=== PATIENT | female | born 1950 | race Caucasian/White ===

== ENCOUNTER 2016-04-12 05:49 | Observation (INO) ==
--- NOTE | 2016-04-12 05:57 | Emergency Department Note ---
Disposition Clinical Impression: A-fib Qualifiers: Atrial fibrillation type: chronic Qualified Code(s): I48.2 - Chronic atrial fibrillation Disposition: Still a Patient Condition: Critical Referrals: Unassigned,Provider [Non-Partnered Physician] - Forms: ED Satisfaction Letter Arrhythmia/Palpitations HPI - General Chief Complaint: ED Arrhythmia/Palpitations Stated Complaint: High heart rate Time Seen by Provider: 04/12/16 05:53 Source: patient, EMS Limitations: no limitations Nursing Notes Reviewed: Yes Vital Signs Reviewed: Yes - History of Present Illness HPI Narrative: Ms. Chen, a 65yo female, presents from home by EMS with CC: weakness, lightheadedness. Hx paroxysmal A. Fib. Patient awoke to use the restroom, felt weak and light headed. States these are typical symptoms for her A. Fib, though not as severe this time. Per EMS, patient was in A. Fib while in route. Patient is now asymptomatic. Anticoagulated on Eliquis and aspirin. Rate controlled with Cardizem 120mg Qday. PMH: A. Fib, HTN Admits: weakness, lightheadedness. Denies: fever, chills, chest pain, palpitations, back pain, headache, changes in vision, fall or trauma associated with her symptoms today. - Related Data Home Medications Medication Instructions Recorded Confirmed Flaxseed Oil PO DAILY 06/11/15 Losartan/HCTZ 100 mg PO DAILY 06/11/15 06/11/15 Marco Antonio Multivit For Women Caplet 06/11/15 Pantoprazole 40 mg PO DAILY 06/11/15 06/11/15 Previous Rx's Medication Instructions Recorded Apixaban [Eliquis] 5 mg PO BID 30 Days 06/12/15 Aspirin 81 mg PO DAILY 30 Days 06/12/15 Diltiazem CD (24hr) [Cardizem CD] 120 mg PO DAILY 30 Days 06/12/15 Losartan/HCTZ [Hyzaar 50-12.5 1 each PO DAILY #30 tablet 06/12/15 Tablet] Potassium Chlorate 30 meq PO DAILY 30 Days 06/12/15 Allergies Allergy/AdvReac Type Severity Reaction Status Date / Time No Known Allergies Allergy Verified 06/11/15 01:22 All systems ED: reviewed and negative except as stated. 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 HEENT: No facial asymmetry. Head is normocephalic and atraumatic. Trachea midline. Cardiovascular: Heart irregular rapid rate rhythm without clicks, rubs, gallops , or murmurs. No JVD. PMI nondisplaced. No pedal edema. Respiratory: Symmetric chest rise with good respiratory effort. Bilateral breath sounds are clear without wheezing, crackles, or rhonchi. Abdomen: Bowel sounds present normoactive x-4 quadrants. Abdomen is soft, nondistended, and nontender. No organomegaly noted. Psych: Patient's affect is appropriate for situation. - General Limitations: no limitations General appearance: alert Course Course Narrative: Patient arrives in A. [facility] RVR. She is well-appearing, alert, oriented, denies chest pain, and in no acute distress. She did take her morning Cardizem prior to transport. We will begin Cardizem drip, EKG, blood work. 06:40 Cardizem drip rate: 5mg/hr. Patient's HR has slowed from 190's to 130-150s, still A. Fib. She is asymptomatic at this time. Vital Signs Temperature 98.0 F 04/12/16 05:50 Pulse Rate 182 04/12/16 05:50 Respiratory Rate 20 04/12/16 05:50 Blood Pressure 144/117 04/12/16 05:50 O2 Sat by Pulse Oximetry 98 04/12/16 05:50 Temperature 98.0 F 04/12/16 05:50 Pulse Rate 141 04/12/16 06:25 Respiratory Rate 18 04/12/16 06:17 Blood Pressure 122/75 04/12/16 06:25 O2 Sat by Pulse Oximetry 95 04/12/16 06:25 Oxygen Delivery Oxygen Delivery Nasal Cannula Arrhythmia/Palpitations - Lab Data Result diagrams: 04/12/16 06:00 04/12/16 06:00 Lab Results 04/12/16 04/12/16 04/12/16 Range/Units 06:00 06:00 06:00 WBC 5.6 (4.3-11.1) K/mcL RBC 3.91 (3.82-4.97) M/mcL Hgb 8.6 L (11.5-15.4) g/dL Hct 30.4 L (35.3-44.9) % MCV 77.7 L (83.0-100.0) fL MCH 22.0 L (28.0-33.3) pg MCHC 28.3 L (31.6-35.5) g/dL RDW 16.8 H (11.5-14.5) % Plt Count 313 (140-400) K/mcL MPV 9.5 (9.4-12.4) fL Immature Gran % 0.2 (0-4) % Seg Neutrophils % 59.7 % Lymphocytes % 26.7 % Monocytes % 8.0 % Eosinophils % 5.0 % Basophils % 0.4 % Neutrophils # 3.3 (1.6-8.9) K/mcL Lymphocytes # 1.5 (0.6-4.6) K/mcL Monocytes # 0.5 (0.0-1.3) K/mcL Eosinophils # 0.3 (0.0-0.6) K/mcL Basophils # 0.0 (0.0-0.2) K/mcL Platelet Estimate Normal (Normal) Large Platelets Present A (Not Present) Polychromasia 1+ A (Not Present) Hypochromasia Present A (Not Present) Macrocytosis Present A (Not Present) PT 13.2 H (9.4-12.1) Seconds INR 1.2 APTT 46.8 H (26.0-36.0) Seconds Sodium 143 (136-145) mEq/L Potassium 3.5 (3.5-4.5) mEq/L Chloride 111 H (98-109) mEq/L Carbon Dioxide 22 (19-29) mEq/L BUN 17 (7-20) mg/dL Creatinine 0.82 (0.57-1.11) mg/dL Est GFR ( Amer) > 60 (> 60) Est GFR (Non-Af Amer) > 60 (> 60) BUN/Creatinine Ratio 21 (6-26) Glucose 111 H (70-99) mg/dL Calculated Osmolality 298 (280-300) Calcium 9.3 (8.6-10.8) mg/dL Troponin I (0-0.03) ng/mL TSH 1.995 (0.350-4.840) mcIU/mL 04/12/16 Range/Units 06:00 WBC (4.3-11.1) K/mcL RBC (3.82-4.97) M/mcL Hgb (11.5-15.4) g/dL Hct (35.3-44.9) % MCV (83.0-100.0) fL MCH (28.0-33.3) pg MCHC (31.6-35.5) g/dL RDW (11.5-14.5) % Plt Count (140-400) K/mcL MPV (9.4-12.4) fL Immature Gran % (0-4) % Seg Neutrophils % % Lymphocytes % % Monocytes % % Eosinophils % % Basophils % % Neutrophils # (1.6-8.9) K/mcL Lymphocytes # (0.6-4.6) K/mcL Monocytes # (0.0-1.3) K/mcL Eosinophils # (0.0-0.6) K/mcL Basophils # (0.0-0.2) K/mcL Platelet Estimate (Normal) Large Platelets (Not Present) Polychromasia (Not Present) Hypochromasia (Not Present) Macrocytosis (Not Present) PT (9.4-12.1) Seconds INR APTT (26.0-36.0) Seconds Sodium (136-145) mEq/L Potassium (3.5-4.5) mEq/L Chloride (98-109) mEq/L Carbon Dioxide (19-29) mEq/L BUN (7-20) mg/dL Creatinine (0.57-1.11) mg/dL Est GFR ( Amer) (> 60) Est GFR (Non-Af Amer) (> 60) BUN/Creatinine Ratio (6-26) Glucose (70-99) mg/dL Calculated Osmolality (280-300) Calcium (8.6-10.8) mg/dL Troponin I 0.01 (0-0.03) ng/mL TSH (0.350-4.840) mcIU/mL Critical Care Time Critical Care Time: Yes Total Critical Care Time: 40 Attestation: Critical care performed: Time is exclusive of separately billable procedures. Time includes: direct patient care, patient reassessment, coordination of patient care, interpretation of data (laboratory data, radiology data, and respiratory data), review of patient's medical records, medical consultation and documentation of patient care. Procedures included in critical care time: Procedures excluded from critical care time: Attestation Statement - Attestation Attestation: I, Yariel Mardid MD, personally performed a history and physical exam of the patient and discussed their management with the resident. I reviewed the resident's note and agree with the documented findings, medical decision making , and plan of care. 65-year-old female presents to the emergency department with a complaint of rapid heart beat. Patient states she awoke this morning and got up to go to the bathroom. After she got up and went to the bathroom she started feeling a little lightheaded and dizzy with some mild palpitations and mild shortness of breath. No chest pain. No syncope. She does have a prior history of atrial fibrillation and is currently taking Cardizem. She is also on aspirin and Eliquis. On arrival here in the emergency department the patient is in atrial fibrillation with RVR with a heart rate in the range of 200. Pressure is stable and she is awake alert and oriented with no chest pain. No diaphoresis. On examination patient is a well-developed well-nourished well-appearing female in no acute distress. She is alert and oriented 3. There is no cyanosis or diaphoresis. Chest is nontender to palpation. Breath sounds are clear and equal bilaterally. Heart is very tachycardic and irregularly irregular. Labs reviewed. Hemoglobin of 8.6. Troponin normal. Chest x-ray negative. EKG shows atrial fibrillation with RVR. Patient received Cardizem 20 mg IV push and was placed on a Cardizem infusion. Heart rate improved down into the range of 130 to 150 but continues in atrial fibrillation RVR. The hospitalist, Dr. Garnica, was consulted for admission however at shift change he has not returned his page. Patient is being signed out to the [facility] dayshift team, Dr. France and Dr. Reyes.
[2016-04-12 06:06] LABS: Basophils % 0.4 %; Eosinophils # 0.3 K/mcL (0.0-0.6); Hematocrit 30.4 % (35.3-44.9); Hemoglobin 8.6 g/dL (11.5-15.4); Immature Granulocytes % 0.2 % (0-4); Lymphocytes # 1.5 K/mcL (0.6-4.6); Lymphocytes % 26.7 %; Mean Corpuscular HGB Conc 28.3 g/dL (31.6-35.5); Mean Corpuscular Volume 77.7 fL (83.0-100.0); Mean Platelet Volume 9.5 fL (9.4-12.4); Monocytes # 0.5 K/mcL (0.0-1.3); Platelet Count 313 K/mcL (140-400); Red Blood Count 3.91 M/mcL (3.82-4.97); Red Cell Distribution Width 16.8 % (11.5-14.5); Segmented Neutrophils % 59.7 %
[2016-04-12 06:08] LABS: Neutrophils # 3.3 K/mcL (1.6-8.9)
[2016-04-12 06:13] LABS: INR 1.2; Prothrombin Time 13.2 Seconds (9.4-12.1)
[2016-04-12 06:15] LABS: Activated Partial Thrombo Time 46.8 Seconds (26.0-36.0)
[2016-04-12 06:19] LABS: BUN/Creatinine Ratio 21 (6-26); Blood Urea Nitrogen 17 mg/dL (7-20); Calcium 9.3 mg/dL (8.6-10.8); Carbon Dioxide 22 mEq/L (19-29); Chloride 111 mEq/L (98-109); Glucose 111 mg/dL (70-99); Osmolality,Calculated 298 (280-300); Potassium 3.5 mEq/L (3.5-4.5); Sodium 143 mEq/L (136-145); eGFR For African Americans > 60 (> 60); eGFR For Non-African Americans > 60 (> 60)
[2016-04-12 06:26] LABS: Hypochromasia Present (Not Present)
[2016-04-12 06:27] LABS: Large Platelets Present (Not Present); Macrocytosis Present (Not Present); Platelet Estimate Normal (Normal); Polychromasia 1+ (Not Present)
[2016-04-12 06:42] LABS: Thyroid Stimulating Hormone 1.995 mcIU/mL (0.350-4.840)
--- NOTE | 2016-04-12 07:09 | Emergency Department Note ---
Disposition Clinical Impression: A-fib Qualifiers: Atrial fibrillation type: chronic Qualified Code(s): I48.2 - Chronic atrial fibrillation Disposition: Admitted As Inpatient Condition: Good Time of Disposition: 07:30 Arrhythmia/Palpitations HPI - General Chief Complaint: ED Arrhythmia/Palpitations Stated Complaint: High heart rate Time Seen by Provider: 04/12/16 05:53 Source: patient, EMS Limitations: no limitations Nursing Notes Reviewed: Yes Vital Signs Reviewed: Yes - Related Data Home Medications Medication Instructions Recorded Confirmed Losartan/HCTZ [Hyzaar 50-12.5 1 tab PO DAILY 04/12/16 04/12/16 Tablet] Mv W-Ca/Iron/FA/Lutein/Hrb#179 1 tab PO DAILY 04/12/16 04/12/16 [Marco Antonio Multivit For Women Caplet] Pantoprazole Sodium [Protonix] 40 mg PO BID 04/12/16 04/12/16 Potassium Chloride [Klor-Con 10] 30 meq PO BID 04/12/16 04/12/16 Previous Rx's Medication Instructions Recorded Aspirin 81 mg PO DAILY 30 Days 06/12/15 Diltiazem CD (24hr) [Cardizem CD] 180 mg PO DAILY #30 cap.er.24h 04/13/16 Ferrous Sulfate 325 mg PO TIDWM #90 tablet 04/13/16 Omeprazole 20 mg PO DAILY #30 tablet. 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 George pending call back from the hospitalist for disposition, patient is anticoagulated history of atrial fibrillation, currently on Cardizem drip rate from the 200s to 120s, her blood pressure stable. Patient is stable awaiting admission hospitalist - Reevaluation(s) Reevaluation #1: Patient reevaluated heart lung sound clear, heart rate 60. Sinus rhythm, on Cardizem drip, patient currently stable, blood pressure 106/70, weight for bed, please see night physician Dr. Madrid and Dr. George's note for further documentation on this patient encounter Time: 08:27 Vital Signs Temperature 98.0 F 04/12/16 05:50 Pulse Rate 182 04/12/16 05:50 Respiratory Rate 20 04/12/16 05:50 Blood Pressure 144/117 04/12/16 05:50 O2 Sat by Pulse Oximetry 98 04/12/16 05:50 Temperature 98.0 F 04/13/16 10:58 Pulse Rate 67 04/13/16 10:58 Respiratory Rate 18 04/13/16 10:58 Blood Pressure 157/80 04/13/16 10:58 O2 Sat by Pulse Oximetry 98 04/13/16 10:58 Oxygen Delivery Oxygen Delivery Nasal Cannula Arrhythmia/Palpitations - [facility] Narrative Medical decision making narrative: 65-year-old female with A. fib with RVR, Cardizem bolus and drip started, heart rate improved from 185 down to 120s, blood pressure stable admitted to medicine service in stable condition. - Differential Diagnosis Differential Diagnosis: Likely: sinus tachycardia, artial arrhythmia, ventricular premature beats, supraventricular tachycardia - Lab Data Lab results reviewed: Yes I reviewed the patient's lab results. Result diagrams: 04/13/16 04:33 04/13/16 04:33 Lab Results 04/12/16 04/12/16 04/12/16 Range/Units 06:00 06:00 06:00 WBC 5.6 (4.3-11.1) K/mcL RBC 3.91 (3.82-4.97) M/mcL Hgb 8.6 L (11.5-15.4) g/dL Hct 30.4 L (35.3-44.9) % MCV 77.7 L (83.0-100.0) fL MCH 22.0 L (28.0-33.3) pg MCHC 28.3 L (31.6-35.5) g/dL RDW 16.8 H (11.5-14.5) % Plt Count 313 (140-400) K/mcL MPV 9.5 (9.4-12.4) fL Immature Gran % 0.2 (0-4) % Seg Neutrophils % 59.7 % Lymphocytes % 26.7 % Monocytes % 8.0 % Eosinophils % 5.0 % Basophils % 0.4 % Neutrophils # 3.3 (1.6-8.9) K/mcL Lymphocytes # 1.5 (0.6-4.6) K/mcL Monocytes # 0.5 (0.0-1.3) K/mcL Eosinophils # 0.3 (0.0-0.6) K/mcL Basophils # 0.0 (0.0-0.2) K/mcL Platelet Estimate Normal (Normal) Large Platelets Present A (Not Present) Polychromasia 1+ A (Not Present) Hypochromasia Present A (Not Present) Macrocytosis Present A (Not Present) PT 13.2 H (9.4-12.1) Seconds INR 1.2 APTT 46.8 H (26.0-36.0) Seconds Sodium 143 (136-145) mEq/L Potassium 3.5 (3.5-4.5) mEq/L Chloride 111 H (98-109) mEq/L Carbon Dioxide 22 (19-29) mEq/L BUN 17 (7-20) mg/dL Creatinine 0.82 (0.57-1.11) mg/dL Est GFR ( Amer) > 60 (> 60) Est GFR (Non-Af Amer) > 60 (> 60) BUN/Creatinine Ratio 21 (6-26) Glucose 111 H (70-99) mg/dL Calculated Osmolality 298 (280-300) Calcium 9.3 (8.6-10.8) mg/dL Troponin I (0-0.03) ng/mL TSH 1.995 (0.350-4.840) mcIU/mL 04/12/16 Range/Units 06:00 WBC (4.3-11.1) K/mcL RBC (3.82-4.97) M/mcL Hgb (11.5-15.4) g/dL Hct (35.3-44.9) % MCV (83.0-100.0) fL MCH (28.0-33.3) pg MCHC (31.6-35.5) g/dL RDW (11.5-14.5) % Plt Count (140-400) K/mcL MPV (9.4-12.4) fL Immature Gran % (0-4) % Seg Neutrophils % % Lymphocytes % % Monocytes % % Eosinophils % % Basophils % % Neutrophils # (1.6-8.9) K/mcL Lymphocytes # (0.6-4.6) K/mcL Monocytes # (0.0-1.3) K/mcL Eosinophils # (0.0-0.6) K/mcL Basophils # (0.0-0.2) K/mcL Platelet Estimate (Normal) Large Platelets (Not Present) Polychromasia (Not Present) Hypochromasia (Not Present) Macrocytosis (Not Present) PT (9.4-12.1) Seconds INR APTT (26.0-36.0) Seconds Sodium (136-145) mEq/L Potassium (3.5-4.5) mEq/L Chloride (98-109) mEq/L Carbon Dioxide (19-29) mEq/L BUN (7-20) mg/dL Creatinine (0.57-1.11) mg/dL Est GFR ( Amer) (> 60) Est GFR (Non-Af Amer) (> 60) BUN/Creatinine Ratio (6-26) Glucose (70-99) mg/dL Calculated Osmolality (280-300) Calcium (8.6-10.8) mg/dL Troponin I 0.01 (0-0.03) ng/mL TSH (0.350-4.840) mcIU/mL - Radiology Data Radiology results reviewed: Yes I reviewed the patient's radiology results. - EKG Data EKG attestation: Yes I reviewed and interpreted this EKG. 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 65-year-old female received in sign out pending admission to the hospitalist. Chin diagnosed with A. fib with RVR. Resident admitted patient to the hospitalist without difficulty. Patient had no further complaints or concerns on reevaluation.
--- NOTE | 2016-04-12 09:10 | Internal Med History&Physical ---
Date of Encounter: 04/12/16 Time of Encounter: 08:30 Assessment and Plan (1) Atrial fibrillation with rapid ventricular response Current visit: Yes Status: Acute History of atrial fibrillation on oral Cardizem and Eliquis at home. She woke up this morning and while going to the bathroom she suddenly felt dizzy, lightheaded, short of breath and noticed that her heart rate was beating fast. no chest pain. She took her Cardizem 120 mg pill at 5.30 am with attempt to slow down her heart rate but no success. Patient reports severe runny nose for the past few weeks due to dust at home, they are cleaning her rugs and doing some renovation. She has taken over the counter nasal swabs and pills, does not recall the names of the medications but just took yesterday a new [facility] pill for runny nose. Patient was admitted on May 2015 with afib with rvr and elevated troponin due to rvr, at that time she was started n oral cardizem and has done well. In ED, initial EKG showed atrial fibrillation HR [address] depression V2 -V6 (prior EKG in May 2015 afib rvr hr 161, and ST depression V4-V5). She received Iv Cardizem 20 mg and then was started on cardizem drip at 5 with rapid conversion to SR HR 60. First troponin is negative, She is asymptomatic at this time. 05/2015: Echocardiogram revealed LVEF 60%. plan: Repeat EKG shows SR, HR 66. pt already took this morning, will stop cardizem drip and monitor her rhythm. may resume cardizem drip if she develops afib with rvr. serial troponin. instructed patient to bring over the counter medications and check if might have triggered her to develop afib with rvr. (2) Anemia Current visit: Yes Status: Acute Hgb 8.6 (hg 12.7 in May 2015 when patient started Eliquis). Fecal hemoccult repeat hgb in afternoon. check ferritin, iron profile, folate, b12 levels Qualifiers: Anemia type: unspecified type Qualified Code(s): D64.9 - Anemia, unspecified (3) HTN (hypertension) Current visit: Yes Status: Acute BP is adequate. resume home cardizem. Qualifiers: Hypertension type: essential hypertension Qualified Code(s): I10 - Essential (primary) hypertension (4) Obesity (BMI 30-39.9) Current visit: No Status: Acute bmi 36. outpt weight loss program Internal Medicine - H&P: HPI Chief complaint: palpitations this morning. Admitted From: Home Plans for Post Hospital Care: Home History of present illness: Ms. Chen is a 65 year old female with past medical history of atrial fibrillation on Eliquis and hypertension. She woke up this morning and while going to the bathroom she suddenly felt dizzy, lightheaded, short of breath and noticed that her heart rate was beating fast. no chest pain. no syncope. no bleeding. no diaphoresis. no focal deficit. no fever. no abdominal pain. no urinary complaints. no LE edema. no headache. She took her Cardizem pill 120 mg at 5.30 am with attempt to slow down her heart rate but no success. She called EMS and was brought to our ED. Patient reports severe runny nose for the past few weeks due to dust at home, they are cleaning her rugs and doing some renovation. She has taken over the counter nasal swabs and pills, does not recall the names of the medications but just took yesterday a new [facility] pill for runny nose. Patient was admitted on May 2015 with afib with rvr and elevated troponin due to rvr, at that time she was started n oral cardizem and has done well. In ED, initial EKG showed atrial fibrillation HR [address] depression V2 -V6 (prior EKG in May 2015 afib rvr hr 161, and ST depression V4-V5). She received Iv Cardizem 20 mg and then was started on cardizem drip at 5 with rapid conversion to SR HR 60. She is asymptomatic at this time. Hgb 8.6 (hg 12.7 in May 2015 when patient started Eliquis). Past Med Surg Social Fam HX - Past Medical History Medical history: atrial fibrillation, GERD, hypertension Psychiatric history: no psych history - Social History Smoking Status: Never smoker Alcohol use: none Drug use: none - Family History Mother Living Status: Hx Family Cardiac Disorders: Yes (NC, HTN) Hx Family Respiratory Disorders: No Hx Family Cancer: Yes (COLON, UTERUS) Hx Family GI Disorders: No Hx Family Endocrine Disorder: No Hx Family Neuromuscular Disorders: No Hx Family Neurologic Disorders: No Hx Family HEENT Disorders: No Hx Family Autoimmune Disorders: No Father Living Status: Hx Family Cardiac Disorders: No Hx Family Respiratory Disorders: No Hx Family Cancer: No Hx Family GI Disorders: No Hx Family Endocrine Disorder: No Hx Family Neuromuscular Disorders: No Hx Family Neurologic Disorders: No Hx Family HEENT Disorders: No Hx Family Autoimmune Disorders: No Internal Medicine - H&P: Meds Flaxseed Oil PO DAILY 06/11/15 [History] Losartan/HCTZ 100 mg PO DAILY 06/11/15 [History] Marco Antonio Multivit For Women Caplet 06/11/15 [History] Pantoprazole 40 mg PO DAILY 06/11/15 [History] Apixaban [Eliquis] 5 mg PO BID 30 Days 06/12/15 [Rx] Aspirin 81 mg PO DAILY 30 Days 06/12/15 [Rx] Diltiazem CD (24hr) [Cardizem CD] 120 mg PO DAILY 30 Days 06/12/15 [Rx] Losartan/HCTZ [Hyzaar 50-12.5 Tablet] 1 each PO DAILY #30 tablet 06/12/15 [Rx] Potassium Chlorate 30 meq PO DAILY 30 Days 06/12/15 [Rx] Allergies No Known Allergies Allergy (Verified 06/11/15 01:22) All Systems PM: A 10-system review of systems was performed and is negative for pertinent findings except as documented above in the HPI. - Constitutional Vitals: Temp Pulse Resp BP Pulse Ox 98.0 F 60 16 136/75 99 04/12/16 05:50 04/12/16 08:38 04/12/16 08:46 04/12/16 08:46 04/12/16 08:38 General appearance: Present: cooperative, A&O X 3, pleasant, no acute distress, answers questions appropriately - Eye Eye exam: Present: PERRL, sclera anicteric - Neck Neck exam general surgery: Present: supple, trachea midline. Absent: lymphadenopathy - Respiratory Respiratory exam: Present: CTAB - Cardiovascular Cardiovascular exam: Present: RRR - GI/Abdominal GI/Abdominal exam: Present: normal bowel sounds, soft. Absent: distended, tenderness - Extremities Exam Extremities exam: Present: normal inspection, radial pulses palpable and symetrical. Absent: pedal edema - Back Exam Back exam: Absent: CVA tenderness (L), CVA tenderness (R) - Neurological Exam Neurological exam: Present: alert, oriented X3, no focal deficits, strengths equal and symetr throughout. Absent: facial droop, speech deficit - Skin Skin exam: Present: normal color. Absent: cyanosis, rash Internal Med - H&P Results - Labs CBC & Chem 7: 04/12/16 06:00 04/12/16 06:00
[2016-04-12] MEDS ORDERED: Naloxone 0.4 MG/ML INJ IVP PRN (09:17)
[2016-04-12] MEDS ORDERED: Acetaminophen 325 MG TABLET PO PRN (09:17)
[2016-04-12] MEDS ORDERED: Ondansetron 4 MG/2 ML VIAL IVP PRN (09:17)
[2016-04-12] MEDS ORDERED: Diltiazem CD (24hr) 120 MG CAPSULE PO SCH (09:45)
[2016-04-12 13:54] LABS: Hematocrit 27.1 % (35.3-44.9); Hemoglobin 7.8 g/dL (11.5-15.4)
[2016-04-12 14:04] LABS: % Iron Saturation 3 % (15-50); Iron 12 mcg/dL (50-170); Transferrin 301 mg/dL (180-382)
[2016-04-12 14:25] LABS: Ferritin 7 ng/ml (5-204)
[2016-04-12 14:40] LABS: Folate 16.3 ng/mL (7.0-31.4)
[2016-04-12] MEDS: APIXABAN 5 MG TABLET PO SCH (20:29)
[2016-04-13 05:14] LABS: Basophils % 0.2 %; Immature Granulocytes % 0.3 % (0-4)
[2016-04-13 05:15] LABS: Eosinophils # 0.2 K/mcL (0.0-0.6); Eosinophils % 4.1 %; Hematocrit 28.1 % (35.3-44.9); Hemoglobin 7.9 g/dL (11.5-15.4); Lymphocytes # 1.4 K/mcL (0.6-4.6); Lymphocytes % 24.2 %; Mean Corpuscular HGB Conc 28.1 g/dL (31.6-35.5); Mean Corpuscular Hemoglobin 21.9 pg (28.0-33.3); Mean Corpuscular Volume 77.8 fL (83.0-100.0); Mean Platelet Volume 9.9 fL (9.4-12.4); Monocytes # 0.5 K/mcL (0.0-1.3); Monocytes % 8.6 %; Neutrophils # 3.7 K/mcL (1.6-8.9); Platelet Count 280 K/mcL (140-400); Red Blood Count 3.61 M/mcL (3.82-4.97); Red Cell Distribution Width 16.7 % (11.5-14.5); Segmented Neutrophils % 62.6 %
[2016-04-13 05:35] LABS: BUN/Creatinine Ratio 19 (6-26); Blood Urea Nitrogen 15 mg/dL (7-20); Calcium 9.5 mg/dL (8.6-10.8); Carbon Dioxide 24 mEq/L (19-29); Chloride 109 mEq/L (98-109); Glucose 97 mg/dL (70-99); Magnesium 1.8 mg/dL (1.6-2.6); Osmolality,Calculated 293 (280-300); Phosphorous 3.4 mg/dL (2.3-4.7); Potassium 3.5 mEq/L (3.5-4.5); Sodium 141 mEq/L (136-145); eGFR For African Americans > 60 (> 60); eGFR For Non-African Americans > 60 (> 60)
[2016-04-13 05:50] LABS: Anisocytosis 1+ (Not Present); Hypochromasia Present (Not Present); Platelet Estimate Normal (Normal)
[2016-04-13 05:51] LABS: Ovalocytes 1+ (Not Present)
[2016-04-13] MEDS: APIXABAN 5 MG TABLET PO SCH (08:43)
[2016-04-13] MEDS ORDERED: Aspirin 81 MG TAB.CHEW PO SCH (09:00)
[2016-04-13] MEDS ORDERED: hydroCHLOROthiazide 25 MG TABLET PO SCH (09:00)
[2016-04-13] MEDS ORDERED: Diltiazem CD (24hr) 120 MG CAPSULE PO SCH (09:00)
[2016-04-13 10:59] VITALS: BP 157/80
[2016-04-13] MEDS ORDERED: Potassium Chloride Elixir 20 MEQ/15 ML UDC GTUBE SCH (11:00)
--- NOTE | 2016-04-13 14:50 | Discharge Summary ---
Date of Encounter: 04/13/16 Time of Encounter: 08:20 - Discharge Diagnosis (1) Atrial fibrillation with rapid ventricular response Priority: Primary Status: Acute (2) Anemia Priority: Secondary Status: Acute Qualifiers: Anemia type: iron deficiency Iron deficiency anemia type: other iron deficiency Qualified Code(s): D50.8 - Other iron deficiency anemias (3) HTN (hypertension) Priority: Secondary Status: Chronic Qualifiers: Hypertension type: essential hypertension Qualified Code(s): I10 - Essential (primary) hypertension (4) Obesity (BMI 30-39.9) Priority: Secondary Status: Chronic - Discharge Medications Prescriptions: Diltiazem CD (24hr) [Cardizem CD] 180 mg PO DAILY #30 cap.er.24h Ferrous Sulfate 325 mg PO TIDWM #90 tablet Omeprazole 20 mg PO DAILY #30 tablet. Home Medications: Aspirin 81 mg PO DAILY 30 Days 06/12/15 [Rx] Losartan/HCTZ [Hyzaar 50-12.5 Tablet] 1 tab PO DAILY 04/12/16 [History] Mv W-Ca/Iron/FA/Lutein/Hrb#179 [[facility] Multivit For Women Caplet] 1 tab PO DAILY 04/12/16 [History] Pantoprazole Sodium [Protonix] 40 mg PO BID 04/12/16 [History] Potassium Chloride [Klor-Con 10] 30 meq PO BID 04/12/16 [History] Diltiazem CD (24hr) [Cardizem CD] 180 mg PO DAILY #30 cap.er.24h 04/13/16 [Rx] Ferrous Sulfate 325 mg PO TIDWM #90 tablet 04/13/16 [Rx] Omeprazole 20 mg PO DAILY #30 tablet. 04/13/16 [Rx] Allergies/Adverse Reactions: Allergies No Known Allergies Allergy (Verified 06/11/15 01:22) Procedures/tests Complete & Pending: Procedures Performed prior 72 hours Category Date Time Status ECG 12 lead ECG [ECG] AM 0600 Y 04/13/16 06:00 Ordered ECG 12 lead ECG [ECG] Routine Y 04/12/16 09:17 Completed ECG 12 lead ECG [ECG] Routine Y 04/12/16 10:04 Completed ECG 12 lead ECG [ECG] Routine Y 04/12/16 15:22 Completed EV echocardiogram Stat Y 04/13/16 09:49 Ordered Date of admission: 04/12/16 07:45 Primary care physician: Mercy Lennon CNP Discharging clinician: Pancho Wilcox Anticipated date of discharge: 04/13/16 - Patient Status Disposition: Home, Self-Care Condition: Good Functional capacity at discharge: independent ambulation Overall status at discharge: patient is progressing back to baseline - Discharge Instructions Follow Up With: Mercy Lennon CNP [Primary Care Provider] - (web request sent on 04/12/16 ) Jonathan Rocha MD [Partnered Physician] - (In 2 weeks for anemia) Additional Instructions: Follow-up with cardiology in 1-2 weeks. - Diet and Activity Activity: increase activity as tolerated Diet: low fat, low cholesterol, low salt diet Hospital course: Ms. Chen is a 65 year old female patient with history of atrial fibrillation- paroxysmal, hypertension was hospitalized here with rapid A. fib after she presented to the ER complaining of dizziness lightheadedness and palpitations. She had taken her oral diltiazem before coming into the ER. In the ER she was given IV Cardizem and then started on Cardizem drip with rapid conversion to sinus rhythm. Since then her heart rate has been in sinus rhythm and patient feels has been feeling much better. Her troponins were slightly elevated. Patient denies any chest pain. They have trended downwards. Most likely elevation is due to demand ischemia/A. fib. A 2-D echocardiogram has been ordered and is currently pending. Patient wishes to go home today and so she can follow-up on the results of the echocardiogram with her primary care provider. Patient was also anemic on presentation. Reviewing her labs, her hemoglobin at baseline is at 12 and this was in May of last year. Her current hemoglobin is around 8. It has remained stable during his stay here. Given that the patient has been on Eliquis, there is a risk of GI bleed. Patient denies any melena or hematemesis. She does have very low iron levels. Given these findings, I recommend stopping Eliquis till she has been evaluated by GI. I would also recommend rechecking her blood work in one week to see if her anemia has stabilized or improved. I will also place her on iron supplements. Taking her off Eliquis does increase her risk of stroke and I explained this to the patient. She understands her current situation and is agreeable to holding Eliquis. I will also refer her to cardiology for follow-up. - Time Spent with Patient Total time spent providing and/or coordinating discharge services: Greater than 30 minutes (40 min) - Constitutional Vitals: Temp Pulse Resp BP Pulse Ox 98.0 F 67 18 157/80 98 04/13/16 10:58 04/13/16 10:58 04/13/16 10:58 04/13/16 10:58 04/13/16 10:58 General appearance: Present: cooperative, A&O X 3, pleasant, no acute distress, answers questions appropriately - Respiratory Respiratory exam: Present: CTAB. Absent: accessory muscle use, rales, rhonchi, wheezes - Cardiovascular Cardiovascular exam: Present: RRR, +S1, +S2. Absent: diastolic murmur, gallop, rubs, systolic murmur - GI/Abdominal GI/Abdominal exam: Present: normal bowel sounds, soft, no peritoneal signs. Absent: distended, tenderness - Attending Attestation This document has been at least partially created by [employer] recognition technology by Dr. Wilcox. Errors in grammar, wording or other phrases may exist. If errors are found after the documentation is signed, they will be addressed individually in the addendum section of this document when appropriate.
[2016-04-14] MEDS ORDERED: Potassium Chloride Elixir 20 MEQ/15 ML UDC PO SCH (09:00)
--- NOTE | 2016-04-14 10:58 | ECHO - Doppler Report ---
Echocardiogram Name: Yolette Weiss April Date of Study: 04/13/2016 Date: 1950 Ht: 63.0 in Medical Record#: [id number] Age: 65 Wt: 205.0 lb Gender: Female BSA: 1.95 Order #: [id number] Location: [facility] Room #: 2A24 Reading Physician: Becca Crews DO [address] Deputy Clerk: Shahla Grace RDCS Ordering Physician: Pancho Wilcox MD Primary Physician: eMrcy Lennon CNP Indications: Elevated Troponin Impressions: LVEF 60%. Normal left ventricular size and systolic function. Normal right ventricular size and function. Mild mitral regurgitation. No pulmonary hypertension. Left Ventricular Wall Motion: Rest Echo Findings All wall segments showed normal motion. Findings: Study Quality * Technically adequate exam. ECG Findings * Normal sinus rhythm. Left Ventricle * LVEF 60%. * Normal LV chamber size, wall thickness and function. * Indeterminate diastolic function. Mitral Valve * Normal mitral valve structure. * No mitral stenosis. * Mild mitral regurgitation. Aortic Valve * Trileaflet aortic valve. * Normal aortic valve structure. * No aortic stenosis. * Trace aortic regurgitation. Tricuspid Valve * Tricuspid valve not well visualized. * Trace tricuspid regurgitation. * Estimated RA pressure is 3 mmHg. * Estimated RVSP is 33 mmHg. * No pulmonary hypertension. Pulmonic Valve * Pulmonic valve is not well visualized. * No pulmonic stenosis. * No pulmonic regurgitation. Pulmonary Artery * Pulmonary artery not well visualized. Right Ventricle * Normal right ventricular structure and function. Right Atrium * Normal right atrial size. Left Atrium * Severely dilated left atrium. Interatrial Septum * No evidence of PFO by color Doppler. IVC * The IVC is not dilated. Pericardium * There is no pericardial effusion present. History Hypertension Family History of CAD 06/11/2015 a Previous Echo was performed. Measurements: BP: 157/ 80 2D Normal Values IVSd: .89 cm 0.6 - 1.0 cm LVIDd: 5.20 cm 3.7 - 5.6 cm LVPWd: .89 cm 0.6 - 1.1 cm LVIDs: 2.94 cm 1.5 - 3.6 cm AO: 2.80 cm < 4.0 cm LA: 4.50 cm 2.0 - 4.0cm %FS: 48.20 cm >25 % LA volume: 83 Mitral Valve Peak E:1.16 m/sec Peak A:.81 m/sec E/A Ratio:1.4 Peak E' Lat Romie:13.6 cm/s Peak E' Med Romie:9.36 cm/s E/E' Lat Ratio:8.5 E/E' Med Ratio:12.4 Tricuspid Valve TV Regurg Peak Grad: 30.00mmHg TV Regurg Peak Romie: 2.76m/sec Updated by Becca Crews on 04/14/2016 10:52:12 AM electronically signed on 04/14/2016 10:53:26 AM with status of [employer] Knight: 1=Normal, 2=Hypokinesis, 3=Akinesis, 4=Dyskinesis, 5=Aneurysmal, 6=Hyperkinetic, X=Not Visualized (Blank)=Missing
--- NOTE | 2016-04-14 17:37 | Electrocardiograph Report ---
[place] [address] Test Date: 2016-04-12 Pat Name: Yolette Chen Department: 112 Room: 2A24 Gender: F Curber: : 1950 Requested By: Pancho Wilcox Order Number: [id number] Reading MD: Becca Crews Measurements Intervals [place] Rate: 68 P: -85 MO: 100 QRS: 29 QRSD: 90 T: 42 QT: 402 QTc: 419 Interpretive Statements JUNCTIONAL RHYTHM NONSPECIFIC T-WAVE ABNORMALITY ABNORMAL RHYTHM ECG Electronically Signed On 04-14-2016 17:35:44 EST by Becca Crews
--- NOTE | 2016-04-14 17:44 | Electrocardiograph Report ---
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
--- NOTE | 2016-04-14 17:45 | Electrocardiograph Report ---
[place] [address] Test Date: 2016-04-12 Pat Name: Yolette Chen Department: 112 Room: 2A24 Gender: F [employer] Est[employer] Specialist: : 1950 Requested By: Rowena Del Rosario Order Number: [id number] Reading MD: Altagracia Conroy Measurements Intervals [place] Rate: 67 P: -82 [place]: 105 QRS: 31 QRSD: 90 T: 28 QT: 401 QTc: 416 Interpretive Statements Ectopic atrial rhythm NONSPECIFIC T-WAVE ABNORMALITY ABNORMAL RHYTHM ECG Electronically Signed On 04-14-2016 17:43:54 EST by Altagracia Conroy
--- NOTE | 2016-04-14 17:52 | Electrocardiograph Report ---
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
== END 2016-04-13 17:32 | disposition home or self-care (01) ==
LOC: EMEROO 05:49 → 2ANU 05:49
PROVIDERS: ADMIT Internal Medicine; ATTEND Internal Medicine

== ENCOUNTER 2016-06-09 18:41 | Observation (INO) ==
[2016-06-09] MEDS ORDERED: Ondansetron 4 MG/2 ML VIAL IV ONE (18:56)
[2016-06-09] MEDS ORDERED: 0.9 % Sodium Chloride 500 ML IVC ONE (18:56)
[2016-06-09 19:22] LABS: Hematocrit 41.3 % (35.3-44.9); Hemoglobin 13.3 g/dL (11.5-15.4); Mean Corpuscular HGB Conc 32.2 g/dL (31.6-35.5); Mean Corpuscular Hemoglobin 27.6 pg (28.0-33.3); Mean Corpuscular Volume 85.7 fL (83.0-100.0); Mean Platelet Volume 9.6 fL (9.4-12.4); Platelet Count 243 K/mcL (140-400); Red Blood Count 4.82 M/mcL (3.82-4.97); Red Cell Distribution Width 24.5 % (11.5-14.5)
[2016-06-09 19:28] LABS: Prothrombin Time 10.5 Seconds (9.4-12.1)
[2016-06-09 19:36] LABS: Alanine Aminotransferase 16 Units/L (0-55); Albumin 3.5 g/dL (3.5-5.0); Albumin/Globulin Ratio 0.9 (1.1-2.2); Alkaline Phosphatase 74 Units/L (38-126); Aspartate Amino Transferase 24 Units/L (5-34); BUN/Creatinine Ratio 31 (6-26); Bilirubin,Total 0.4 mg/dL (0.2-1.2); Blood Urea Nitrogen 25 mg/dL (7-20); Calcium 9.8 mg/dL (8.6-10.8); Carbon Dioxide 22 mEq/L (19-29); Chloride 110 mEq/L (98-109); Globulin 3.9 g/dL (2.4-3.5); Glucose 105 mg/dL (70-99); Osmolality,Calculated 299 (280-300); Potassium 3.3 mEq/L (3.5-4.5); Sodium 142 mEq/L (136-145); Total Protein 7.4 g/dL (6.0-8.3); eGFR For African Americans > 60 (> 60); eGFR For Non-African Americans > 60 (> 60)
[2016-06-09 19:41] LABS: Lymphocytes # 0.7 K/mcL (0.6-4.6); Monocytes # 0.7 K/mcL (0.0-1.3); Neutrophils # 9.8 K/mcL (1.6-8.9)
[2016-06-09 19:42] LABS: Anisocytosis 1+ (Not Present)
--- NOTE | 2016-06-09 20:07 | Emergency Department Note ---
Disposition Clinical Impression: Fibrillation, atrial Qualifiers: Atrial fibrillation type: persistent Qualified Code(s): I48.1 - Persistent atrial fibrillation Disposition: Admitted As Inpatient Condition: Fair Referrals: Mercy Lennon CNP [Primary Care Provider] - Forms: ED Satisfaction Letter Nausea/Vomiting/Diarrhea HPI - General Chief complaint: ED Nausea/Vomiting/Diarrhea Stated complaint: ate bad sausage Time Seen by Provider: 06/09/16 18:49 Source: EMS Limitations: no limitations Nursing Notes Reviewed: Yes Vital Signs Reviewed: Yes - History of Present Illness HPI Narrative: History presents with complaint of palpitations that started after vomiting today. Patient ate some bad sausage she thought and started vomiting. Patient noticed she developed palpitations and put herself into atrial fibrillation. Patient denies any chest pain denies shortness of breath. Patient denies any other pain currently. Patient denies any dizziness denies numbness and tingling. - Related Data Home Medications Medication Instructions Recorded Confirmed Losartan/HCTZ [Hyzaar 50-12.5 1 tab PO DAILY 04/12/16 06/09/16 Tablet] Mv W-Ca/Iron/FA/Lutein/Hrb#179 1 tab PO DAILY 04/12/16 06/09/16 [Marco [facility] Multivit For Women Caplet] Pantoprazole Sodium [Protonix] 40 mg PO BID 04/12/16 06/09/16 Potassium Chloride [Klor-Con 10] 30 meq PO BID 04/12/16 06/09/16 Aspirin Enteric Coated [Aspirin EC] 81 mg PO DAILY 06/09/16 06/09/16 Previous Rx's Medication Instructions Recorded Diltiazem CD (24hr) [Cardizem CD] 180 mg PO DAILY #30 cap.er.24h 04/13/16 Allergies Allergy/AdvReac Type Severity Reaction Status Date / Time No Known Allergies Allergy Verified 04/20/16 07:26 All systems ED: reviewed and negative except as stated. Past Medical History - Past Medical History Source: patient, nursing notes reviewed Medical history: Reports: atrial fibrillation, GERD, hypertension Surgical history: Reports: cholecystectomy Psychiatric history: Reports: no psych history SPINE SPECIALIST history: Reports: bilateral tubal ligation - Social History Smoking Status: Never smoker Smokeless Tobacco Status: No Alcohol use: Reports: none Drug use: Reports: none Physical Exam - General Limitations: no limitations General appearance: alert - Head Head exam: atraumatic, normocephalic, normal inspection - Eye Eye exam: Present: normal appearance, PERRL, EOMI - ENT ENT exam: normal exam, normal oropharynx, mucous membranes moist - Neck Neck exam: Present: normal inspection, full ROM, trachea midline - Chest Chest inspection: Present: normal inspection, symmetric chest wall rise - Respiratory Respiratory exam: Present: normal lung sounds bilaterally - Cardiovascular Cardiovascular exam: Present: tachycardia, irregular rhythm - Abdominal Exam Abdominal exam: Present: soft, Non-Tender. Absent: tenderness, distention, guarding, rebound, rigidity - Extremities Exam Extremities exam: Present: normal inspection, full ROM. Absent: tenderness, pedal edema - Back Exam Back exam: Present: normal inspection, full ROM. Absent: tenderness - Neurological Exam Neurological exam: Present: alert, oriented X3 - Psychiatric Psychiatric exam: Present: normal affect, normal mood - Skin Skin exam: Present: warm, dry, intact, normal color Course Vital Signs Temperature 97.3 F L 06/09/16 18:42 Pulse Rate 162 06/09/16 18:42 Respiratory Rate 20 06/09/16 18:42 Blood Pressure 116/92 06/09/16 18:42 O2 Sat by Pulse Oximetry 95 06/09/16 18:42 Temperature 97.3 F L 06/09/16 18:42 Pulse Rate 162 06/09/16 18:42 Respiratory Rate 20 06/09/16 18:42 Blood Pressure 116/92 06/09/16 18:42 O2 Sat by Pulse Oximetry 95 06/09/16 18:42 Oxygen Delivery Oxygen Delivery Room Air Nausea/Vomiting/Diarrhea - Differential Diagnosis Likely: gastroenteritis, drug-induced nausea and vomitting, dehydration, bowel obstruction - Lab Data Lab results reviewed: Yes I reviewed the patient's lab results. Result diagrams: 06/09/16 19:15 06/09/16 19:15 Lab Results 06/09/16 06/09/16 06/09/16 Range/Units 19:15 19:15 19:15 WBC 11.1 (4.3-11.1) K/mcL RBC 4.82 (3.82-4.97) M/mcL Hgb 13.3 (11.5-15.4) g/dL Hct 41.3 (35.3-44.9) % MCV 85.7 (83.0-100.0) fL MCH 27.6 L (28.0-33.3) pg MCHC 32.2 (31.6-35.5) g/dL RDW 24.5 H (11.5-14.5) % Plt Count 243 (140-400) K/mcL MPV 9.6 (9.4-12.4) fL Seg Neutrophils % 76.0 % Band Neutrophils % 12.0 H (0-4) % Lymphocytes % 6.0 % Monocytes % 6.0 % Neutrophils # 9.8 H (1.6-8.9) K/mcL Lymphocytes # 0.7 (0.6-4.6) K/mcL Monocytes # 0.7 (0.0-1.3) K/mcL Anisocytosis 1+ A (Not Present) PT 10.5 (9.4-12.1) Seconds INR 1.0 APTT 42.0 H (26.0-36.0) Seconds Sodium 142 (136-145) mEq/L Potassium 3.3 L (3.5-4.5) mEq/L Chloride 110 H (98-109) mEq/L Carbon Dioxide 22 (19-29) mEq/L BUN 25 H (7-20) mg/dL Creatinine 0.81 (0.57-1.11) mg/dL Est GFR ( Amer) > 60 (> 60) Est GFR (Non-Af Amer) > 60 (> 60) BUN/Creatinine Ratio 31 H (6-26) Glucose 105 H (70-99) mg/dL Calculated Osmolality 299 (280-300) Lactic Acid (0.5-2.2) mmol/L Calcium 9.8 (8.6-10.8) mg/dL Total Bilirubin 0.4 (0.2-1.2) mg/dL AST 24 (5-34) Units/L ALT 16 (0-55) Units/L Alkaline Phosphatase 74 (38-126) Units/L Troponin I (0-0.03) ng/mL Serum Total Protein 7.4 (6.0-8.3) g/dL Albumin 3.5 (3.5-5.0) g/dL Globulin 3.9 H (2.4-3.5) g/dL Albumin/Globulin Ratio 0.9 L (1.1-2.2) 06/09/16 06/09/16 Range/Units 19:15 19:15 WBC (4.3-11.1) K/mcL RBC (3.82-4.97) M/mcL Hgb (11.5-15.4) g/dL Hct (35.3-44.9) % MCV (83.0-100.0) fL MCH (28.0-33.3) pg MCHC (31.6-35.5) g/dL RDW (11.5-14.5) % Plt Count (140-400) K/mcL MPV (9.4-12.4) fL Seg Neutrophils % % Band Neutrophils % (0-4) % Lymphocytes % % Monocytes % % Neutrophils # (1.6-8.9) K/mcL Lymphocytes # (0.6-4.6) K/mcL Monocytes # (0.0-1.3) K/mcL Anisocytosis (Not Present) PT (9.4-12.1) Seconds INR APTT (26.0-36.0) Seconds Sodium (136-145) mEq/L Potassium (3.5-4.5) mEq/L Chloride (98-109) mEq/L Carbon Dioxide (19-29) mEq/L BUN (7-20) mg/dL Creatinine (0.57-1.11) mg/dL Est GFR ( Amer) (> 60) Est GFR (Non-Af Amer) (> 60) BUN/Creatinine Ratio (6-26) Glucose (70-99) mg/dL Calculated Osmolality (280-300) Lactic Acid 0.8 (0.5-2.2) mmol/L Calcium (8.6-10.8) mg/dL Total Bilirubin (0.2-1.2) mg/dL AST (5-34) Units/L ALT (0-55) Units/L Alkaline Phosphatase (38-126) Units/L Troponin I 0.00 (0-0.03) ng/mL Serum Total Protein (6.0-8.3) g/dL Albumin (3.5-5.0) g/dL Globulin (2.4-3.5) g/dL Albumin/Globulin Ratio (1.1-2.2) - Radiology Data Radiology results reviewed: Yes I reviewed the patient's radiology results. Chest X-Ray 06/09/16 18:49 IMPRESSION: Cardiomegaly with mild pulmonary vascular congestion. D/ / Fani Cardenas MD / Fani Cardenas MD Interpreting Provider: Fani Cardenas MD - EKG Data EKG attestation: Yes I reviewed and interpreted this EKG. Rate: tachycardia Rhythm: A.Fib Critical Care Time Total Critical Care Time: 45 Attestation: Critical care performed: Time is exclusive of separately billable procedures. Time includes: direct patient care, patient reassessment, coordination of patient care, interpretation of data (laboratory data, radiology data, and respiratory data), review of patient's medical records, medical consultation and documentation of patient care. Procedures included in critical care time: Procedures excluded from critical care time:
[2016-06-09] MEDS ORDERED: 0.9 % Sodium Chloride 500 ML ONE (20:31)
[2016-06-09] MEDS ORDERED: Naloxone 0.4 MG/ML INJ IVP PRN (23:10)
[2016-06-09] MEDS ORDERED: Ondansetron 4 MG/2 ML VIAL IVP PRN (23:10)
--- NOTE | 2016-06-09 23:19 | Internal Med History&Physical ---
Date of Encounter: 06/09/16 Time of Encounter: 23:00 Assessment and Plan (1) Atrial fibrillation with rapid ventricular response Current visit: Yes Status: Acute Secondary to GI illness (likely food poisoning) leading to acute electrolyte derangements. Patient not anticoagulated secondary to severe anemia requiring blood transfusions, being managed by PCP - Patient in NSR on arrival to floor, diltiazem gtt discontinued - Monitor on telemetry overnight, restart dilt gtt if returns to a fib - Continue home PO diltiazem - Replace K, recheck in AM - Check mag STAT, replace if low - Trend troponins (2) Hypokalemia Current visit: No Status: Chronic K 3.3, in setting of vomiting. - Check Magnesium level and replace, goal >2 - Replace K, recheck in AM (3) CAD (coronary artery disease) Current visit: No Status: Acute Patient denies chest pain - Trend troponin Qualifiers: Coronary Disease-Associated Artery/Lesion type: [place] artery [place] vs. transplanted heart: [place] heart Associated angina: without angina Qualified Code(s): I25.10 - Atherosclerotic heart disease of [place] coronary artery without angina pectoris (4) Nausea & vomiting Current visit: Yes Status: Acute Likely food poisoning secondary to eating spoiled sausage. Patient denies nausea on arrival to medicine floor. - PRN antiemetics Qualifiers: Vomiting type: unspecified Vomiting Intractability: non-intractable Qualified Code(s): R11.2 - Nausea with vomiting, unspecified Internal Medicine - H&P: HPI Chief complaint: nausea, vomiting, a fib with RVR Admitted From: Emergency Dept Plans for Post Hospital Care: Home History of present illness: Ms. Chen is a 65 year old female with history of paroxysmal atrial fibrillation who presented to the ER this afternoon after she developed severe nausea, vomiting, and atrial fibrillation with RVR. She was admitted two months ago with an episode of a fib with RVR and had been feeling well since discharge. This afternoon she ate a sausage out of her refrigerator which was several days old, and shortly after eating it she began violently vomiting. She also had an episode of loose stool on arrival to her room on the med/surg floor. After the vomiting began she could tell that she was in atrial fibrillation with RVR, as she was having severe palpitations but no chest pain. She did take her dose of PO diltiazem early this morning, but attempted to take a second dose while vomiting. Unfortunately she was unable to keep the diltiazem down and vomited it up shortly after she took it. In the ER she was found to be in atrial fibrillation with heart rate of 180s-200s. She was started on a diltiazem gtt and converted to NSR shortly after arriving to the medicine floor. She currently has no complaints other than being tired, and she notes she is always tired after an episode of atrial fibrillation. Of note she is no longer on eliquis, as she had anemia of unclear etiology (colonoscopy and EGD negative) requiring recent blood transfusions and her PCP discontinued the eliquis. Past Med Surg Social Fam HX - Past Medical History Medical history: atrial fibrillation, GERD, hypertension Psychiatric history: no psych history - Past Surgical History Surgical History: cholecystectomy, colectomy - Social History Smoking Status: Never smoker Smokeless Tobacco Status: No Alcohol use: none Drug use: none Additional social history: Lives at home, one year ago - Family History Brother Living Status: Hx Family Cardiac Disorders: No Hx Family Respiratory Disorders: No Hx Family Cancer: Yes (colon) Hx Family GI Disorders: No Hx Family Genitourinary Disorders: No Hx Family Endocrine Disorder: No Hx Family Musculoskeletal Disorders: No Hx Family Neuromuscular Disorders: No Hx Family Neurologic Disorders: No Hx Family HEENT Disorders: No Hx Family Autoimmune Disorders: No Hx Family Reproductive Disorders: No Hx Family Psychosocial Disorders: No Hx Family Medical Disorders: No Sister Living Status: Still Living Hx Family Cardiac Disorders: No Hx Family Respiratory Disorders: No Hx Family Cancer: Yes (colon, uterine) Hx Family GI Disorders: No Hx Family Genitourinary Disorders: No Hx Family Endocrine Disorder: No Hx Family Musculoskeletal Disorders: No Hx Family Neuromuscular Disorders: No Hx Family Neurologic Disorders: No Hx Family HEENT Disorders: No Hx Family Autoimmune Disorders: No Hx Family Reproductive Disorders: No Hx Family Psychosocial Disorders: No Hx Family Medical Disorders: No Daughter Living Status: Still Living Hx Family Cardiac Disorders: No Hx Family Respiratory Disorders: No Hx Family Cancer: No Hx Family GI Disorders: No Hx Family Genitourinary Disorders: No Hx Family Endocrine Disorder: No Hx Family Musculoskeletal Disorders: No Hx Family Neuromuscular Disorders: No Hx Family Neurologic Disorders: No Hx Family HEENT Disorders: No Hx Family Autoimmune Disorders: No Hx Family Reproductive Disorders: Yes (polycystic ovary) Hx Family Psychosocial Disorders: No Hx Family Medical Disorders: No Mother Living Status: Hx Family Cardiac Disorders: Yes ([place], HTN) Hx Family Respiratory Disorders: No Hx Family Cancer: Yes (COLON, UTERUS) Hx Family GI Disorders: No Hx Family Genitourinary Disorders: No Hx Family Endocrine Disorder: No Hx Family Musculoskeletal Disorders: No Hx Family Neuromuscular Disorders: No Hx Family Neurologic Disorders: No Hx Family HEENT Disorders: No Hx Family Autoimmune Disorders: No Hx Family Reproductive Disorders: No Hx Family Psychosocial Disorders: No Hx Family Medical Disorders: No Father Living Status: Hx Family Cardiac Disorders: No Hx Family Respiratory Disorders: No Hx Family Cancer: No Hx Family GI Disorders: No Hx Family Endocrine Disorder: No Hx Family Neuromuscular Disorders: No Hx Family Neurologic Disorders: No Hx Family HEENT Disorders: No Hx Family Autoimmune Disorders: No Internal Medicine - H&P: Meds Losartan/HCTZ [Hyzaar 50-12.5 Tablet] 1 tab PO DAILY 04/12/16 [History] Mv W-Ca/Iron/FA/Lutein/Hrb#179 [[place] Mult[employer]it [employer] Women Caplet] 1 tab PO DAILY 04/12/16 [History] Pantoprazole Sodium [Protonix] 40 mg PO BID 04/12/16 [History] Potassium Chloride [Klor-Con 10] 30 meq PO BID 04/12/16 [History] Diltiazem CD (24hr) [Cardizem CD] 180 mg PO DAILY #30 cap.er.24h 04/13/16 [Rx] Aspirin Enteric Coated [Aspirin EC] 81 mg PO DAILY 06/09/16 [History] Allergies No Known Allergies Allergy (Verified 04/20/16 07:26) All Systems PM: A 10-system review of systems was performed and is negative for pertinent findings except as documented above in the HPI. - Constitutional Vitals: Temp Pulse Resp BP Pulse Ox 97.9 F 136 19 136/85 96 06/09/16 22:02 06/09/16 22:02 06/09/16 22:02 06/09/16 22:02 06/09/16 22:02 General appearance: Present: A&O X 3, pleasant, no acute distress - Head Head exam: Present: atraumatic - Eye Eye exam: Present: EOMI, sclera anicteric - ENT ENT exam: Present: mucous membranes moist - Neck Neck exam general surgery: Present: supple - Respiratory Respiratory exam: Present: CTAB - Cardiovascular Cardiovascular exam: Present: RRR. Absent: diastolic murmur, gallop, rubs, systolic murmur - GI/Abdominal GI/Abdominal exam: Present: normal bowel sounds, soft. Absent: distended, tenderness - Extremities Exam Extremities exam: Absent: pedal edema - Neurological Exam Neurological exam: Present: no focal deficits - Skin Skin exam: Absent: rash Internal Med - H&P Results - Labs CBC & Chem 7: 06/09/16 19:15 06/09/16 19:15
[2016-06-10 06:13] LABS: Basophils % 0.2 %; Eosinophils # 0.2 K/mcL (0.0-0.6); Hematocrit 36.8 % (35.3-44.9); Immature Granulocytes % 0.4 % (0-4); Lymphocytes # 1.2 K/mcL (0.6-4.6); Lymphocytes % 21.6 %; Mean Corpuscular HGB Conc 32.6 g/dL (31.6-35.5); Mean Corpuscular Hemoglobin 28.3 pg (28.0-33.3); Mean Corpuscular Volume 86.8 fL (83.0-100.0); Monocytes # 0.4 K/mcL (0.0-1.3); Neutrophils # 3.8 K/mcL (1.6-8.9); Platelet Count 216 K/mcL (140-400); Red Blood Count 4.24 M/mcL (3.82-4.97); Red Cell Distribution Width 24.8 % (11.5-14.5); Segmented Neutrophils % 67.8 %
[2016-06-10 06:26] LABS: BUN/Creatinine Ratio 24 (6-26); Blood Urea Nitrogen 18 mg/dL (7-20); Calcium 9.2 mg/dL (8.6-10.8); Carbon Dioxide 28 mEq/L (19-29); Chloride 109 mEq/L (98-109); Glucose 100 mg/dL (70-99); Magnesium 1.9 mg/dL (1.6-2.6); Osmolality,Calculated 296 (280-300); Potassium 3.5 mEq/L (3.5-4.5); Sodium 142 mEq/L (136-145); eGFR For African Americans > 60 (> 60); eGFR For Non-African Americans > 60 (> 60)
[2016-06-10 06:42] VITALS: BP 137/77
[2016-06-10 06:43] LABS: Anisocytosis 1+ (Not Present); Platelet Estimate Normal (Normal)
[2016-06-10] MEDS ORDERED: Diltiazem CD (24hr) 180 MG CAPSULE PO SCH (09:00)
[2016-06-10] MEDS ORDERED: Losartan/HCTZ 50-12.5 TABLET PO SCH (09:00)
[2016-06-10] MEDS ORDERED: Aspirin Enteric Coated 81 MG Tablet PO SCH (09:00)
[2016-06-10] MEDS ORDERED: Multivit/Ca/Min/Fe/FA 1 TAB TABLET PO SCH (09:00)
--- NOTE | 2016-06-10 09:27 | Electrocardiograph Report ---
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
--- NOTE | 2016-06-10 10:28 | Discharge Summary ---
Date of Encounter: 06/10/16 Time of Encounter: 10:25 - Discharge Diagnosis (1) Atrial fibrillation with rapid ventricular response Priority: Primary Status: Acute (2) Nausea & vomiting Priority: Secondary Status: Acute Qualifiers: Vomiting type: unspecified Vomiting Intractability: non-intractable Qualified Code(s): R11.2 - Nausea with vomiting, unspecified (3) DVT prophylaxis Priority: Secondary Status: Acute (4) Elevated troponin Priority: Secondary Status: Acute - Discharge Medications Home Medications: Losartan/HCTZ [Hyzaar 50-12.5 Tablet] 1 tab PO DAILY 04/12/16 [History] Mv W-Ca/Iron/FA/Lutein/Hrb#179 [[place] [place] Mult[employer]it For Women Caplet] 1 tab PO DAILY 04/12/16 [History] Pantoprazole Sodium [Protonix] 40 mg PO BID 04/12/16 [History] Potassium Chloride [Klor-Con 10] 30 meq PO BID 04/12/16 [History] Diltiazem CD (24hr) [Cardizem CD] 180 mg PO DAILY #30 cap.er.24h 04/13/16 [Rx] Aspirin Enteric Coated [Aspirin EC] 81 mg PO DAILY 06/09/16 [History] Allergies/Adverse Reactions: Allergies No Known Allergies Allergy (Verified 04/20/16 07:26) Date of admission: 06/09/16 20:46 Primary care physician: Mercy Lennon CNP Discharging clinician: Cosme Antunez Anticipated date of discharge: 06/10/16 - Patient Status Disposition: Home, Self-Care Condition: Fair Functional capacity at discharge: independent ambulation Overall status at discharge: patient is back to baseline - Discharge Instructions Follow Up With: Mercy Lennon CNP [Primary Care Provider] - 06/18/16 10:40 am - Diet and Activity Activity: increase activity as tolerated Diet: advance to your usual diet Interval History: Ms. Chen is a 65 year old female with history of paroxysmal atrial fibrillation who presented to the ER this afternoon after she developed severe nausea, vomiting, and atrial fibrillation with RVR. She was admitted two months ago with an episode of a fib with RVR and had been feeling well since discharge. This afternoon she ate a sausage out of her refrigerator which was several days old, and shortly after eating it she began violently vomiting. She also had an episode of loose stool on arrival to her room on the med/surg floor. After the vomiting began she could tell that she was in atrial fibrillation with RVR, as she was having severe palpitations but no chest pain. She did take her dose of PO diltiazem early this morning, but attempted to take a second dose while vomiting. Unfortunately she was unable to keep the diltiazem down and vomited it up shortly after she took it. In the ER she was found to be in atrial fibrillation with heart rate of 180s-200s. She was started on a diltiazem gtt and converted to NSR shortly after arriving to the medicine floor. She currently has no complaints other than being tired, and she notes she is always tired after an episode of atrial fibrillation. Of note she is no longer on eliquis, as she had anemia of unclear etiology (colonoscopy and EGD negative) requiring recent blood transfusions and her PCP discontinued the eliquis. Hospital course: Ms. Chen is a 65 year old female admitted due to afib with RVR, responded to cardizem drip and was transitioned to her usual po meds. Afib with rvr exacerbated by acute dehydration as a consequence of food poison. Mild trop elevation, adynamic,, no chest pain. Patient otherwise stable, will discharge her home today. She will follow up with her PCP. Plan explained to patient, she expressed understanding. - Time Spent with Patient Total time spent providing and/or coordinating discharge services: - Constitutional Vitals: Temp Pulse Resp BP Pulse Ox 97.8 F 60 16 137/77 98 06/10/16 06:35 06/10/16 06:35 06/10/16 06:35 06/10/16 06:35 06/10/16 10:19 General appearance: Present: A&O X 3, pleasant, no acute distress - Head Head exam: Present: atraumatic, normocephalic - Eye Eye exam: Present: PERRL, conjuntiva pink, sclera anicteric Pupils: Present: PERRL - Neck Neck exam general surgery: Present: supple, trachea midline. Absent: lymphadenopathy - Respiratory Respiratory exam: Present: CTAB. Absent: accessory muscle use, rales, rhonchi, wheezes - Cardiovascular Cardiovascular exam: Present: RRR, +S1, +S2. Absent: diastolic murmur, gallop, rubs, systolic murmur - GI/Abdominal GI/Abdominal exam: Present: normal bowel sounds, soft, no peritoneal signs. Absent: distended, tenderness - Extremities Exam Extremities exam: Present: warm, radial pulses palpable and symetrical. Absent : calf tenderness, cyanotic, pedal edema - Neurological Exam Neurological exam: Present: CN II-XII intact, oriented X3, no focal deficits. Absent: pronater drift, facial droop, speech deficit - Skin Skin exam: Present: dry, intact
== END 2016-06-10 13:50 | disposition home or self-care (01) ==
LOC: 2NENU 18:41 → EMEROO 18:41 → SUATTDRO 20:46 → 2NENU 21:25
PROVIDERS: ADMIT Internal Medicine; ATTEND Internal Medicine

== ENCOUNTER 2017-04-14 14:49 | Observation (INO) ==
[2017-04-14] MEDS ORDERED: Mag Hydrox/Al Hydrox/Simeth 30 ML UDC PO STA (15:33)
[2017-04-14 15:35] LABS: Basophils % 0.3 %; Eosinophils # 0.2 K/mcL (0.0-0.6); Eosinophils % 3.4 %; Hemoglobin 15.4 g/dL (11.5-15.4); Immature Granulocytes % 0.3 % (0-4); Lymphocytes # 1.6 K/mcL (0.6-4.6); Lymphocytes % 23.6 %; Mean Corpuscular HGB Conc 34.2 g/dL (31.6-35.5); Mean Corpuscular Hemoglobin 33.2 pg (28.0-33.3); Mean Platelet Volume 9.6 fL (9.4-12.4); Monocytes # 0.6 K/mcL (0.0-1.3); Monocytes % 8.5 %; Neutrophils # 4.3 K/mcL (1.6-8.9); Platelet Count 280 K/mcL (140-400); Red Blood Count 4.64 M/mcL (3.82-4.97); Red Cell Distribution Width 12.5 % (11.5-14.5); Segmented Neutrophils % 63.9 %
[2017-04-14 15:48] LABS: Calcium 10.4 mg/dL (8.6-10.3); Carbon Dioxide 25 mEq/L (23-29); Chloride 108 mEq/L (98-107); Potassium 3.7 mEq/L (3.5-5.1); Sodium 142 mEq/L (136-145)
[2017-04-14 15:53] LABS: BUN/Creatinine Ratio 21 (6-26); Blood Urea Nitrogen 15 mg/dL (8-23); Glucose 102 mg/dL (70-105); Osmolality,Calculated 295 (280-300); eGFR For African Americans > 60 (> 60); eGFR For Non-African Americans > 60 (> 60)
[2017-04-14 16:11] LABS: Thyroid Stimulating Hormone 2.203 mcIU/mL (0.340-5.600)
--- NOTE | 2017-04-14 16:38 | Emergency Department Note ---
Disposition Clinical Impression: Atrial fibrillation with RVR Disposition: Admitted As Inpatient Condition: Good General Adult HPI - General Chief complaint: ED Arrhythmia/Palpitations Stated complaint: A-Fib Time Seen by Provider: 04/14/17 15:17 Source: patient, family Limitations: no limitations Nursing Notes Reviewed: Yes Vital Signs Reviewed: Yes - History of Present Illness HPI Narrative: Past medical history of paroxysmal atrial fibrillation not on anticoagulation or rate control. Patient presents today for evaluation of feeling that her heart is "not quite right". Patient had associated weakness of her legs. Mild dizziness. The patient states that she has not had any chest pain but has occasional trouble getting a deep breath when her heart rate is fast. The patient states she has also had increased frequency and no burning with urination. No abdominal pain or flank pain. Pain Scale: 0 - Related Data Home Medications Medication Instructions Recorded Confirmed Losartan/HCTZ [Hyzaar 50-12.5 1 tab PO DAILY 04/12/16 04/14/17 Tablet] Mv W-Ca/Iron/FA/Lutein/Hrb#179 1 tab PO DAILY 04/12/16 04/14/17 [[place] [place] Mult[employer]it For Women Caplet] Pantoprazole Sodium [Protonix] 40 mg PO BID 04/12/16 04/14/17 Potassium Chloride [Klor-Con 10] 30 meq PO BID 04/12/16 04/14/17 Aspirin Enteric Coated [Aspirin EC] 81 mg PO QPM 06/09/16 04/14/17 Azelastine 0.1% Nasal [place] 1 - 2 spray NS 1-2XD PRN 04/14/17 04/14/17 [Astelin] Diltiazem CD (24hr) [Cardizem CD] 180 mg PO QAM 04/14/17 04/14/17 Montelukast [Singulair] 10 mg PO DAILY 04/14/17 04/14/17 Allergies Allergy/AdvReac Type Severity Reaction Status Date / Time No Known Allergies Allergy Verified 04/20/16 07:26 Review of Systems: CONSTITUTIONAL: Weakness No weight loss, fever, chills or fatigue. HEENT: Eyes: No visual changes. Ears, Nose, Throat: No hearing loss, difficulty talking or unable to swallow. SKIN: No rash or itching. CARDIOVASCULAR: Palpitations. RESPIRATORY: No shortness of breath, cough or sputum. GASTROINTESTINAL: No anorexia, nausea, vomiting or diarrhea. No abdominal pain or blood. GENITOURINARY: Urinary frequency NEUROLOGICAL: Dizziness No headache, syncope, paralysis, ataxia, numbness or tingling in the extremities. No change in bowel or bladder control. MUSCULOSKELETAL: No muscle pain, back pain, joint pain or stiffness. Past Medical History - Past Medical History Medical history: Reports: atrial fibrillation, GERD, hypertension Surgical history: Reports: cholecystectomy, colectomy Psychiatric history: Reports: no psych history [employer] history: Reports: bilateral tubal ligation - Social History Smoking Status: Never smoker Smokeless Tobacco Status: No Alcohol use: Reports: none Drug use: Reports: none Physical Exam General: Well appearing, nontoxic, no acute distress Head: Normocephalic Atraumatic Eyes: PERRL, EOMI ENT: Airway patent, no stridor Neck: supple, no meningismus Chest: Lungs clear to auscultation bilateral Cardiac: Irregular rate and rhythm Abdomen: soft, nontender, nondistended; no guarding, rebound, or tenderness to percussion Musculoskeletal: Calves symmetric, nontender, no palpable cord Skin: No rash, normal skin tone Neuro: Alert and Oriented to person, place, and time; No focal deficit, CN 2-12 symmetric and intact - General Limitations: no limitations General appearance: alert, in no apparent distress Course - Reevaluation(s) Reevaluation #1: Patient converted with Cardizem bolus. The patient does not have any cardiology follow-up. Patient has not had any cardiac evaluation in the last 2 years. The patient will be brought into the hospital for further evaluation of A. fib RVR and elevated troponin. Patient does not have chest pain at this time. Vitals are stable. Patient is in sinus rhythm. - Consultations Consultation #1: Aleksandr accepts Vital Signs Temperature 98.0 F 04/14/17 14:50 Pulse Rate 95 04/14/17 14:50 Respiratory Rate 18 04/14/17 14:50 Blood Pressure 151/80 04/14/17 14:50 O2 Sat by Pulse Oximetry 97 04/14/17 14:50 Temperature 97.9 F 04/14/17 18:03 Pulse Rate 54 04/14/17 18:03 Respiratory Rate 16 04/14/17 18:03 Blood Pressure 162/93 04/14/17 18:03 O2 Sat by Pulse Oximetry 97 04/14/17 18:04 Oxygen Delivery Oxygen Delivery Room Air Medical Decision Making - Medical Records Medical records reviewed: Yes I reviewed the patient's medical records. - Lab Data Lab results reviewed: Yes I reviewed the patient's lab results. Result diagrams: 04/14/17 15:19 04/14/17 15:19 Lab Results 04/14/17 04/14/17 04/14/17 Range/Units 15:19 15:19 15:19 WBC 6.7 (4.3-11.1) K/mcL RBC 4.64 (3.82-4.97) M/mcL Hgb 15.4 (11.5-15.4) g/dL Hct 45.0 H (35.3-44.9) % MCV 97.0 (83.0-100.0) fL MCH 33.2 (28.0-33.3) pg MCHC 34.2 (31.6-35.5) g/dL RDW 12.5 (11.5-14.5) % Plt Count 280 (140-400) K/mcL MPV 9.6 (9.4-12.4) fL Immature Gran % 0.3 (0-4) % Seg Neutrophils % 63.9 % Lymphocytes % 23.6 % Monocytes % 8.5 % Eosinophils % 3.4 % Basophils % 0.3 % Neutrophils # 4.3 (1.6-8.9) K/mcL Lymphocytes # 1.6 (0.6-4.6) K/mcL Monocytes # 0.6 (0.0-1.3) K/mcL Eosinophils # 0.2 (0.0-0.6) K/mcL Basophils # 0.0 (0.0-0.2) K/mcL Sodium 142 (136-145) mEq/L Potassium 3.7 (3.5-5.1) mEq/L Chloride 108 H (98-107) mEq/L Carbon Dioxide 25 (23-29) mEq/L BUN 15 (8-23) mg/dL Creatinine 0.71 (0.60-1.20) mg/dL Est GFR ( Amer) > 60 (> 60) Est GFR (Non-Af Amer) > 60 (> 60) BUN/Creatinine Ratio 21 (6-26) Glucose 102 (70-105) mg/dL Calculated Osmolality 295 (280-300) Calcium 10.4 H (8.6-10.3) mg/dL Magnesium (1.6-2.6) mg/dL Troponin I 0.04 H* (< 0.04) ng/mL TSH (0.340-5.600) mcIU/mL 04/14/17 Range/Units 15:19 WBC (4.3-11.1) K/mcL RBC (3.82-4.97) M/mcL Hgb (11.5-15.4) g/dL Hct (35.3-44.9) % MCV (83.0-100.0) fL MCH (28.0-33.3) pg MCHC (31.6-35.5) g/dL RDW (11.5-14.5) % Plt Count (140-400) K/mcL MPV (9.4-12.4) fL Immature Gran % (0-4) % Seg Neutrophils % % Lymphocytes % % Monocytes % % Eosinophils % % Basophils % % Neutrophils # (1.6-8.9) K/mcL Lymphocytes # (0.6-4.6) K/mcL Monocytes # (0.0-1.3) K/mcL Eosinophils # (0.0-0.6) K/mcL Basophils # (0.0-0.2) K/mcL Sodium (136-145) mEq/L Potassium (3.5-5.1) mEq/L Chloride (98-107) mEq/L Carbon Dioxide (23-29) mEq/L BUN (8-23) mg/dL Creatinine (0.60-1.20) mg/dL Est GFR ( Amer) (> 60) Est GFR (Non-Af Amer) (> 60) BUN/Creatinine Ratio (6-26) Glucose (70-105) mg/dL Calculated Osmolality (280-300) Calcium (8.6-10.3) mg/dL Magnesium 2.0 (1.6-2.6) mg/dL Troponin I (< 0.04) ng/mL TSH 2.203 (0.340-5.600) mcIU/mL - Radiology Data Radiology results reviewed: Yes I reviewed the patient's radiology results. - EKG Data EKG #1 EKG attestation: Yes I reviewed and interpreted this EKG. EKG results narrative: EKG shows atrial fibrillation with RVR. Ventricular rate 173. QRS 77. QTC 352. Patient has no significant ST elevations or depressions. EKG unchanged from previous of 06/09/16 which also shows A. fib RVR. EKG #2 EKG attestation: Yes I reviewed and interpreted this EKG. EKG results narrative: EKG shows sinus rhythm without elevation or depression. Attestation Statement - Attestation Attestation: I examined this patient and my medical decision-making was reviewed with the Resident Physician. I agree with the documented findings, disposition and treatment plan as described except to the extent set forth below. Patient to the ED with a chief complaint of A. fib. Patient's heart rate is been running high and she has been having palpitations that started this afternoon. She has a history of paroxysmal atrial fibrillation. She has been taking her meds as prescribed. She denies being sick recently. On examination she is pleasant conversant in no acute distress. Heart tachycardia and irregularly irregular. Plan. Cardiac workup with Cardizem bolus and drip.
--- NOTE | 2017-04-14 17:13 | Internal Med History&Physical ---
Date of Encounter: 04/14/17 Time of Encounter: 17:09 Assessment and Plan (1) Atrial fibrillation with rapid ventricular response Current visit: Yes Status: Acute Converted with IV cardizem. Will restart PO cardizem. Admit to tele. check echo. [id number] score of 3 and should be anticoagulated. She was at some point in 2016 put on Eliqus but she was taken off that in 2017 due to Hgb dropping to 7.8 needing transfusions. Scopes at the time did not show obvious bleeding source other than nonbleeding internal hemorrhoids. Previously seen by cardiology and was recommended eliquis. Will ask cardiology to see in the morning and make further recs on anticoags and further testing. ASA for now. (2) Elevated troponin Current visit: No Status: Acute Likely demand ischemia. Will trend. check TTE. cardiology consult. heparin drip if continues to rise (3) Hypertension Current visit: Yes Status: Acute Resume Cardizem PO and Hyzaar. Qualifiers: Hypertension type: essential hypertension Qualified Code(s): I10 - Essential (primary) hypertension (4) DVT prophylaxis Current visit: No Status: Acute Will start eliquis. heparin SQ. Internal Medicine - H&P: HPI Chief complaint: Palpitations Admitted From: Home Plans for Post Hospital Care: Home History of present illness: Ms. Chen is a 66 year old female with history of paroxysmal A. fib, hypertension , GERD who presented with feeling fatigued, palpitations, dizziness, and weakness. She took her grandkid to school and was walking back to her car when she felt those symptoms suddenly. She was found to be in atrial fibrillation with rapid ventricular response with a rate of 170 reportedly. She was given a bolus of 10 mg IV Cardizem in the ED and converted with a rate staying around the 90s. The patient was also found to have a troponin of 0.04. She denies any chest pain but did report palpitations. All of this started this morning. Denies fever, chills, nausea, vomiting, chest pain, shortness of breath, abdominal pain, urinary symptoms, or neurological symptoms other than the dizziness. The patient is not on anticoagulation for her A. fib. She was at some point in 2015 put on Eliqus but she was taken off that in 2017 due to Hgb dropping to 7.8 needing transfusions. Scopes at the time did not show obvious bleeding source other than nonbleeding internal hemorrhoids. Last echocardiogram was on 03/2016 with an EF of 60% and mild mitral regurgitation Past Med Surg Social Fam HX - Past Medical History Medical history: atrial fibrillation, GERD, hypertension Psychiatric history: no psych history - Past Surgical History Surgical History: cholecystectomy, colectomy - Social History Smoking Status: Never smoker Smokeless Tobacco Status: No Alcohol use: none Drug use: none - Family History Brother Living Status: Hx Family Cardiac Disorders: No Hx Family Respiratory Disorders: No Hx Family Cancer: Yes (colon) Hx Family GI Disorders: No Hx Family Endocrine Disorder: No Hx Family Neuromuscular Disorders: No Hx Family Neurologic Disorders: No Hx Family HEENT Disorders: No Hx Family Autoimmune Disorders: No Sister Living Status: Still Living Hx Family Cardiac Disorders: No Hx Family Respiratory Disorders: No Hx Family Cancer: Yes (colon, uterine) Hx Family GI Disorders: No Hx Family Endocrine Disorder: No Hx Family Neuromuscular Disorders: No Hx Family Neurologic Disorders: No Hx Family HEENT Disorders: No Hx Family Autoimmune Disorders: No Daughter Living Status: Still Living Hx Family Cardiac Disorders: No Hx Family Respiratory Disorders: No Hx Family Cancer: No Hx Family GI Disorders: No Hx Family Endocrine Disorder: No Hx Family Neuromuscular Disorders: No Hx Family Neurologic Disorders: No Hx Family HEENT Disorders: No Hx Family Autoimmune Disorders: No Mother Living Status: Hx Family Cardiac Disorders: Yes ([place], HTN) Hx Family Respiratory Disorders: No Hx Family Cancer: Yes (COLON, UTERUS) Hx Family GI Disorders: No Hx Family Endocrine Disorder: No Hx Family Neuromuscular Disorders: No Hx Family Neurologic Disorders: No Hx Family HEENT Disorders: No Hx Family Autoimmune Disorders: No Father Living Status: Hx Family Cardiac Disorders: No Hx Family Respiratory Disorders: No Hx Family Cancer: No Hx Family GI Disorders: No Hx Family Endocrine Disorder: No Hx Family Neuromuscular Disorders: No Hx Family Neurologic Disorders: No Hx Family HEENT Disorders: No Hx Family Autoimmune Disorders: No Internal Medicine - H&P: Meds Losartan/HCTZ [Hyzaar 50-12.5 Tablet] 1 tab PO DAILY 04/12/16 [History] Mv W-Ca/Iron/FA/Lutein/Hrb#179 [[place] Multivit For Women Caplet] 1 tab PO DAILY 04/12/16 [History] Pantoprazole Sodium [Protonix] 40 mg PO BID 04/12/16 [History] Potassium Chloride [Klor-Con 10] 30 meq PO BID 04/12/16 [History] Aspirin Enteric Coated [Aspirin EC] 81 mg PO QPM 06/09/16 [History] Azelastine 0.1% Nasal [place] [Astelin] 1 - 2 spray NS 1-2XD PRN 04/14/17 [History ] Diltiazem CD (24hr) [Cardizem CD] 180 mg PO QAM 04/14/17 [History] Montelukast [Singulair] 10 mg PO DAILY 04/14/17 [History] 3 Allergy/AdvReac Type Severity Reaction Status Date / Time No Known Allergies Allergy Verified 04/20/16 07:26 All Systems PM: A 10-system review of systems was performed and is negative for pertinent findings except as documented above in the HPI. Review of systems: All systems reviewed are negative except for what is mentioned above - Constitutional Vitals: Temp Pulse Resp BP Pulse Ox 98.0 F 95 18 151/80 97 04/14/17 14:50 04/14/17 14:50 04/14/17 14:50 04/14/17 14:50 04/14/17 14:50 Exam: GEN: NAD HEENT: AT, NC, No cyanosis, oral mucosa is moist, No JVD Lymphatics: No lymphadenoapthy Eyes: Extrocular muscles intact, anicteric CVS:RRR. S1, S2, No m/r/g RESP: CTAB ABD: Soft, NT, ND, +BS EXT: No edema, No rashes, 2+ DP NEURO: Nonfocal, CN II-XII intact, No focal motor or sensory deficits Psych: Cooperative, Not anxious or depressed Internal Med - H&P Results - Labs CBC & Chem 7: 04/14/17 15:19 04/14/17 15:19 Labs: Short CBC 04/14/17 Range/Units 15:19 WBC 6.7 (4.3-11.1) K/mcL Hgb 15.4 (11.5-15.4) g/dL Hct 45.0 H (35.3-44.9) % Plt Count 280 (140-400) K/mcL Neutrophils # 4.3 (1.6-8.9) K/mcL BMP 04/14/17 15:19 Sodium 142 Potassium 3.7 Chloride 108 H Carbon Dioxide 25 BUN 15 Creatinine 0.71 Glucose 102 Calcium 10.4 H Cardiac Enzymes 04/14/17 Range/Units 15:19 Troponin I 0.04 H* (< 0.04) ng/mL - Impressions ITS Impressions Chest X-Ray 04/14/17 14:59 IMPRESSION: No significant change. No acute process. D/ / Cl Giraldo MD / lC Giraldo MD Interpreting Provider: Cl Giraldo MD
[2017-04-14] MEDS ORDERED: Acetaminophen 325 MG TABLET PO PRN (17:20)
[2017-04-14] MEDS ORDERED: Naloxone 0.4 MG/ML INJ IVP PRN (17:20)
[2017-04-14] MEDS ORDERED: Aspirin Enteric Coated 81 MG Tablet PO SCH (18:00)
[2017-04-14] MEDS: Diltiazem CD (24hr) 180 MG CAPSULE PO SCH (18:49)
[2017-04-14] MEDS ORDERED: Apixaban 5 MG TABLET PO SCH (21:00)
[2017-04-14] MEDS: *HR* Heparin 5,000 UNIT/ML VIAL SQ SCH (21:25)
[2017-04-15] MEDS: *HR* Heparin 5,000 UNIT/ML VIAL SQ SCH (05:19)
[2017-04-15] MEDS: Diltiazem CD (24hr) 180 MG CAPSULE PO SCH (08:56)
[2017-04-15] MEDS ORDERED: Losartan/HCTZ 50-12.5 TABLET PO SCH (09:00)
--- NOTE | 2017-04-15 10:22 | Cardiology Consult Note ---
<Gina P[place] - Last Filed: 04/15/17 11:07> Date of Encounter: 04/15/17 Time of Encounter: 10:00 Assessment and Plan (1) Paroxysmal atrial fibrillation Current Visit: No Status: Acute Hx of PAF since 2011; patient reports this is 4th episode requiring hospital admission. Presented in RVR, now SR after IV cardizem. Has been on lopressor in the past, now Cardizem 180 mg daily. Unable to uptitrate CCB d/t bradycardia, avg HR=52 SB. TTE pending. Prior TTE 2016 showed preserved LVEF. Last ischemic evaluation 2011--exercise nuclear stress negative. Patient may be candidate for antiarrhythmic therapy. Would need to be on anticoagulation for 30 days prior to starting and will need ischemic evaluation. Recommend follow-up in the outpatient setting with Dr. Asif Conroy for further evaluation. Hx of suspected GI bleed in 2016 (HgB 7.8, required PRBC) while on Eliquis , now on ASA only. EGD/colonoscopy completed--no obvious source of bleeding. Is willing to trial Eliquis again, discussed with Dr. Crews, will start Eliquis 5 mg BID, first dose now. Recommend close observation of H/H as outpatient. Will coordinate outpatient follow-up with Cardiology. Anticipate s/o if no significant findings on TTE. (2) Elevated troponin Current Visit: No Status: Acute Troponin 0.04, 0.03, <0.03 in the setting of afib with RVR (HR 170's). Likely demand ischemia. Doubt ACS. Echo pending. Consider stress in the outpatient setting. (3) Hypertension Current Visit: Yes Status: Acute Elevated today, may need to increase ARB. Qualifiers: Hypertension type: essential hypertension Qualified Code(s): I10 - Essential (primary) hypertension Discussion w patient/family: The assessment and plan as outlined above was discussed with the patient and/or family members who expressed understanding and agreement. All questions were answered. Thank you for involving us in the care of your patient. Please call with any questions. The patient will be discussed and reviewed with Dr. Crews; changes to be made accordingly. History of Present Illness Consult date: 04/15/17 Requesting physician: Bryan Brandon Consult reason: Afib with RVR Chief complaint: Palpitations History of present illness: Ms. Chen is a 66 year old female with PMHx significant for HTN, PAF who presented to the ED with complaints of palpitations that started yesterday; she reports she knew she was in atrial fibrillation. Reports in normal state of health up until event yesterday. She was given cardizem bolus and patient then converted to NSR. She is only taking ASA for CVA prevention, previously on Eliquis in the past for PAF, however stopped in 2016 d/t anemia from suspected GI bleed. She underwent EGD/colonoscopy which did not demonstrate any source of obvious bleeding. Denies any recent abnormal or unusual bleeding. Prior CV testing: TTE 04/13/16: LVEF 60%, normal wall motion TTE 06/11/15: LVEF 60-65%, normal RV structure and function, moderately dilated LA, no significant valvular dysfunction, mild PH (est. RVSP=39 mmHg). Exercise nuclear stress 02/05/12: perfusion imaging negative for ischemia or infarct, exercise ECG negative, hypertensive response to exercise, gated EF=66% . *Patient reports remote [facility] with reportedly non-obstructive CAD Past Med Surg Social Fam HX - Past Medical History Attestation: Yes The following information was validated with the patient. Source: patient Medical history: atrial fibrillation, GERD, hypertension Psychiatric history: no psych history - Past Surgical History Surgical History: cholecystectomy, colectomy - Social History Smoking Status: Never smoker Smokeless Tobacco Status: No Alcohol use: none Drug use: none - Family History Brother Living Status: Hx Family Cardiac Disorders: No Hx Family Respiratory Disorders: No Hx Family Cancer: Yes (colon) Hx Family GI Disorders: No Hx Family Endocrine Disorder: No Hx Family Neuromuscular Disorders: No Hx Family Neurologic Disorders: No Hx Family HEENT Disorders: No Hx Family Autoimmune Disorders: No Sister Living Status: Still Living Hx Family Cardiac Disorders: No Hx Family Respiratory Disorders: No Hx Family Cancer: Yes (colon, uterine) Hx Family GI Disorders: No Hx Family Endocrine Disorder: No Hx Family Neuromuscular Disorders: No Hx Family Neurologic Disorders: No Hx Family HEENT Disorders: No Hx Family Autoimmune Disorders: No Daughter Living Status: Still Living Hx Family Cardiac Disorders: No Hx Family Respiratory Disorders: No Hx Family Cancer: No Hx Family GI Disorders: No Hx Family Endocrine Disorder: No Hx Family Neuromuscular Disorders: No Hx Family Neurologic Disorders: No Hx Family HEENT Disorders: No Hx Family Autoimmune Disorders: No Mother Living Status: Hx Family Cardiac Disorders: Yes ([place], HTN) Hx Family Respiratory Disorders: No Hx Family Cancer: Yes (COLON, UTERUS) Hx Family GI Disorders: No Hx Family Endocrine Disorder: No Hx Family Neuromuscular Disorders: No Hx Family Neurologic Disorders: No Hx Family HEENT Disorders: No Hx Family Autoimmune Disorders: No Father Living Status: Hx Family Cardiac Disorders: No Hx Family Respiratory Disorders: No Hx Family Cancer: No Hx Family GI Disorders: No Hx Family Endocrine Disorder: No Hx Family Neuromuscular Disorders: No Hx Family Neurologic Disorders: No Hx Family HEENT Disorders: No Hx Family Autoimmune Disorders: No Medications and Allergies Losartan/HCTZ [Hyzaar 50-12.5 Tablet] 1 tab PO DAILY 04/12/16 [History] Mv W-Ca/Iron/FA/Lutein/Hrb#179 [[place] Multivit For Women Caplet] 1 tab PO DAILY 04/12/16 [History] Pantoprazole Sodium [Protonix] 40 mg PO BID 04/12/16 [History] Potassium Chloride [Klor-Con 10] 30 meq PO BID 04/12/16 [History] Aspirin Enteric Coated [Aspirin EC] 81 mg PO QPM 06/09/16 [History] Azelastine 0.1% Nasal [place] [Astelin] 1 - 2 spray NS 1-2XD PRN 04/14/17 [History ] Diltiazem CD (24hr) [Cardizem CD] 180 mg PO QAM 04/14/17 [History] Montelukast [Singulair] 10 mg PO DAILY 04/14/17 [History] 3 Allergy/AdvReac Type Severity Reaction Status Date / Time No Known Allergies Allergy Verified 04/20/16 07:26 All Systems Review: The remainder of the systems were reviewed and are negative - Cardiovascular Cardiovascular: as per HPI Physical Examination Vital Signs, Last 4 Hours Temp Pulse Resp BP Pulse Ox 04/15/17 07:19 97.7 F 55 16 158/83 94 General: Conversant, No Apparent Distress HEENT: Atraumatic, Normocephaly, Mucus Membranes Moist Neck: No JVD, Normal carotid pulses Cardiac: Reg Rate and Rhythm, Normal S1 and S2, No Murmur Lungs: Normal Breath Sounds, No Wheeze, Rales, Rhonchi Neuro: Alert and responsive, No focal deficits noted Abdomen: Soft, Non-Tender Skin: No rashes noted on visualized skin Musculoskeletal: No Chest Wall Tenderness Extremities: No Clubbing, No Cyanosis, No Edema, Normal Pulses Results 04/14/17 15:19 04/14/17 15:19 Lab Results 04/14/17 04/15/17 20:43 03:23 Troponin I 0.03 < 0.03 - Imaging and Cardiology Stress Test: report reviewed Echo: pending, report reviewed Other Results: 12 hour tele: avg HR=52 SB. - EKG Interpretation EKG results cardiology: personally reviewed Consult Discharge Plan - Plan Referrals: Mercy Lennon SUPERVISOR WINTER [Primary Care Provider] - <Becca Crews - Last Filed: 04/15/17 13:14> Date of Encounter: 04/15/17 - Attending Attestation I examined this patient and my medical decision-making was reviewed with the SUPERVISOR WINTER. I agree with the documented findings, disposition and treatment plan as described. Atrial fibrillation with RVR - known AFIB, 4th hospitalization. Now back in NSR. Troponins flat and adynamic secondary to RVR. Unable to uptitrate AVN blockers due to blood pressures. Discussed consideration for antiarrhythmic therapy. Would need an ischemic evaluation. Had acute anemia while on eliquis but source never found. Patient would like to try it again, with the understanding of the risks involved - in anticipation of starting antiarrhythmic therapy. Patient would like to proceed with testing as an outpatient. She does not wish to stay. Restarting eliquis 5mg BID. She should stop aspirin. Continue AVN blockers. Outpatient evaluation with Dr. Asif Conroy. Patient is in agreement with the plan. Assessment and Plan Discussion w patient/family: The assessment and plan as outlined above was discussed with the patient and/or family members who expressed understanding and agreement. All questions were answered. Thank you for involving us in the care of your patient. Please call with any questions. History of Present Illness History of present illness: Ms. Chen is a 66 year old female All Systems Review: The remainder of the systems were reviewed and are negative Physical Examination Vital Signs, Last 4 Hours Temp Pulse Resp BP Pulse Ox 04/15/17 12:51 98.4 F 63 15 155/72 97 Results 04/14/17 15:19 04/14/17 15:19 Lab Results 04/14/17 04/15/17 20:43 03:23 Troponin I 0.03 < 0.03
[2017-04-15] MEDS ORDERED: Apixaban 5 MG TABLET PO SCH (11:15)
--- NOTE | 2017-04-15 13:24 | Discharge Summary ---
- NOTES TO OUTPATIENT PROVIDER Notes to Outpatient Provider: Follow up with PCP and Cartoon Artist Date of Encounter: 04/15/17 Time of Encounter: 13:23 - Discharge Diagnosis (1) Atrial fibrillation with rapid ventricular response Priority: Primary Status: Resolved Comments: resolved, patient converted spontaneously continue home meds Cardiology eval noted, for resumption of eliquis Pharmacy confirmed available card for patient till cardio eval ECHO unremarkable (2) Hypertension Priority: Secondary Status: Chronic Qualifiers: Hypertension type: essential hypertension Qualified Code(s): I10 - Essential (primary) hypertension (3) CAD (coronary artery disease) Priority: Secondary Status: Chronic Qualifiers: Coronary Disease-Associated Artery/Lesion type: [place] artery [place] vs. transplanted heart: [place] heart Associated angina: without angina Qualified Code(s): I25.10 - Atherosclerotic heart disease of [place] coronary artery without angina pectoris (4) HTN (hypertension) Priority: Secondary Status: Chronic Qualifiers: Hypertension type: essential hypertension Qualified Code(s): I10 - Essential (primary) hypertension (5) Obesity (BMI 30-39.9) Priority: Secondary Status: Chronic Hospital course: Ms. Chen is a 66 year old female admitted for Afib with RVR Electrolytes stable, self-converted ECHO is normal Cardio eval noted, patient to be discharged on home meds, and started on eliquis Patient also complained of frequency, no dysuria, UA was normal Discharge discussed with: patient, family, nurse, social work, case management - Time Spent with Patient Total time spent providing and/or coordinating discharge services: Greater than 30 minutes - Discharge Medications Prescriptions: Apixaban [Eliquis] 5 mg PO BID #60 tablet Home Medications: Losartan/HCTZ [Hyzaar 50-12.5 Tablet] 1 tab PO DAILY 04/12/16 [History] Mv W-Ca/Iron/FA/Lutein/Hrb#179 [[place] Multivit For Women Caplet] 1 tab PO DAILY 04/12/16 [History] Pantoprazole Sodium [Protonix] 40 mg PO BID 04/12/16 [History] Potassium Chloride [Klor-Con 10] 30 meq PO BID 04/12/16 [History] Aspirin Enteric Coated [Aspirin EC] 81 mg PO QPM 06/09/16 [History] Azelastine 0.1% Nasal [place] [Astelin] 1 - 2 spray NS 1-2XD PRN 04/14/17 [History ] Diltiazem CD (24hr) [Cardizem CD] 180 mg PO QAM 04/14/17 [History] Montelukast [Singulair] 10 mg PO DAILY 04/14/17 [History] Apixaban [Eliquis] 5 mg PO BID #60 tablet 04/15/17 [Rx] Allergies/Adverse Reactions: 3 Allergy/AdvReac Type Severity Reaction Status Date / Time No Known Allergies Allergy Verified 04/20/16 07:26 Date of admission: 04/14/17 17:14 Primary care physician: Mercy Lennon CNP Consults: 04/14/17 17:41 Consult to Cardiology [CONS] Routine Comment: Consulting Provider: Cardiology Pamela Reason for Consult: afib with RVR. no follow ups. not on anticoags Call Completed: No Discharging clinician: Wilbert Salgado Anticipated date of discharge: 04/15/17 - Constitutional Vitals: Temp Pulse Resp BP Pulse Ox 98.4 F 63 15 155/72 97 04/15/17 12:51 04/15/17 12:51 04/15/17 12:51 04/15/17 12:51 04/15/17 12:51 General appearance: Present: A&O X 3, pleasant, no acute distress, obese - Head Head exam: Present: atraumatic, normocephalic - Eye Eye exam: Present: PERRL, conjuntiva pink, sclera anicteric Pupils: Present: PERRL - Neck Neck exam general surgery: Present: supple, trachea midline. Absent: lymphadenopathy - Respiratory Respiratory exam: Present: CTAB. Absent: accessory muscle use, rales, rhonchi, wheezes - Cardiovascular Cardiovascular exam: Present: RRR, +S1, +S2. Absent: diastolic murmur, gallop, rubs, systolic murmur - GI/Abdominal GI/Abdominal exam: Present: normal bowel sounds, soft, no peritoneal signs. Absent: distended, tenderness - Extremities Exam Extremities exam: Present: warm, radial pulses palpable and symmetrical. Absent : calf tenderness, cyanotic, pedal edema - Neurological Exam Neurological exam: Present: alert, CN II-XII intact, oriented X3, no focal deficits. Absent: pronater drift, facial droop, speech deficit - Skin Skin exam: Present: dry, intact - Patient Status Disposition: Home, Self-Care Condition: Good Functional capacity at discharge: independent ambulation Overall status at discharge: patient is back to baseline - Discharge Instructions Follow Up With: Mercy Lennon [employer] [Primary Care Provider] - - Diet and Activity Activity: resume usual activities as tolerated Diet: low salt diet
[2017-04-15 14:37] LABS: Bilirubin,Urine Negative (Negative); Blood,Urine Negative (Negative); Clarity,Urine Clear (Clear); Color,Urine Yellow (Yellow); Glucose,Urine (UA) Normal (Normal); Ketones,Urine Negative (Negative); Leukocyte Esterase,Urine Negative (Negative); Nitrite,Urine Negative (Negative); Protein,Urine Negative (Neg-Trace); Specific Gravity,Urine 1.015 (1.010-1.025); Urobilinogen,Urine Normal (Normal)
--- NOTE | 2017-04-15 15:03 | Event Note ---
Date of Encounter: 04/15/17 Time of Encounter: 14:30 - Cardiology Event Note Notified by pharmacist that and will go home with Eliquis 5mg PO BID and assistance card. Message sent to cardiology office to work on long-term assistance. Patient and family aware to not discontinue anticoagulation unless discussed with cardiology. Follow-up arranged. Discharge pending. All questions answered.
[2017-04-15 15:11] VITALS: BP 150/76
--- NOTE | 2017-04-15 15:21 | Electrocardiograph Report ---
[address] [place] [address] Test Date: 2017-04-14 Pat Name: Yolette Chen Department: 103 Room: [facility] Gender: F Instrument Installer: DOREEN : 1950 Requested By: Lang Quiles Order Number: [id number] Reading MD: Becca Crews Measurements Intervals [place] Rate: 61 P: 42 W[place]: 153 QRS: 16 QRSD: 90 T: 55 QT: 385 QTc: 389 Interpretive Statements SINUS RHYTHM Electronically Signed On 04-15-2017 15:20:05 EST by Becca Crews
--- NOTE | 2017-04-15 15:56 | Electrocardiograph Report ---
[place] [address] Test Date: 2017-04-14 Pat Name: Yolette Chen Department: 104 Room: 2N5 Gender: F [employer] Instructor: MIAN : 1950 Requested By: Shahla See Order Number: [id number] Reading MD: Becca Crews Measurements Intervals [place] Rate: 173 P: [place]: 0 QRS: 34 QRSD: 77 T: 17 QT: 259 QTc: 352 Interpretive Statements ATRIAL FIBRILLATION WITH RAPID VENTRICULAR RESPONSE NONSPECIFIC ST & T-WAVE ABNORMALITY ABNORMAL RHYTHM ECG Electronically Signed On 04-15-2017 15:54:55 EST by Becca Crews
[2017-04-16] MEDS ORDERED: Diltiazem CD (24hr) 180 MG CAPSULE PO SCH (09:00)
[2017-04-16] MEDS ORDERED: Diltiazem CD (24hr) 240 MG CAPSULE PO SCH (09:00)
== END 2017-04-15 17:18 | disposition home or self-care (01) ==
LOC: EMEROO 14:49 → 2NENU 14:49
PROVIDERS: ADMIT Internal Medicine; ATTEND Internal Medicine